=== PATIENT | female | born 1950 | race Caucasian/White ===

== ENCOUNTER → 2018-06-21 07:40 | Outpatient (CLI) | payer MEDICARE, SELFPAY ==
[2018-06-21 07:58] LABS: Basophils # 0.1 K/mm3 (0-0.2); Basophils % 0.9 % (0.1-2.0); Eosinophils # 0.4 K/mm3 (0.0-0.4); Eosinophils % 4.5 % (0.1-12.0); Hematocrit 44.2 % (37.0-47.0); Lymphocytes % 36.7 % (10-50); Mean Corpuscular HGB Conc 31.8 g/dL (31.8-35.4); Mean Corpuscular Hemoglobin 30.4 pg (27.0-31.2); Mean Corpuscular Volume 95.8 fl (81-99); Mean Platelet Volume 7.7 fl (7.4-10.4); Monocytes # 0.5 K/mm3 (0.1-1.0); Neutrophils # 4.3 K/mm3 (1.8-7.8); Neutrophils % 51.8 % (37.0-80.0); Platelet Count 289 K/mm3 (142-424); Red Blood Count 4.62 M/mm3 (4.20-5.40); White Blood Count 8.3 K/mm3 (4.8-10.8)
[2018-06-21 10:07] LABS: Alanine Aminotransferase 27 U/L (12-78); Albumin Level 3.7 gm/dL (3.4-5.0); Albumin/Globulin Ratio 1.2 (1.1-1.8); Alkaline Phosphatase 87 U/L (46-116); Anion Gap 12.7 mEq/L (5-15); Aspartate Amino Transferase 11 U/L (15-37); Bilirubin,Total 0.4 mg/dL (0.2-1.0); Blood Urea Nitrogen 12 mg/dL (7-18); Calcium 9.3 mg/dL (8.5-10.1); Carbon Dioxide 31 mmol/L (21.0-32.0); Chloride 102 mmol/L (98-107); Chol/HDL Ratio 4.3 (1-3.5); Cholesterol 200 mg/dL (140-200); Creatinine,Serum 0.83 mg/dL (0.55-1.02); Estimated Glomerular Filt Rate 69 ml/min (>60); GFR (African American) 83 ML/MIN (>60); Glucose 93 mg/dL (74-106); HDL Cholesterol 47 mg/dL (29-89); LDL Cholesterol 124 mg/dL (0-130); Potassium 4.7 mmoL/L (3.5-5.1); Sodium 141 mmol/L (136-145); T4 (Thyroxine) 13.2 ug/dl (4.7-13.3); Thyroid Stimulating Hormone 2.46 uIU/ml (0.358-3.740); Total Protein,Serum 6.7 gm/dL (6.4-8.2); Triglycerides 147 mg/dL (30-200); VLDL Cholesterol 29 mg/dL (0-40)
== END ==
PROVIDERS: Visit Provider Internal Medicine Cardiovascular Disease
DX: I48.0 Paroxysmal atrial fibrillation (principal); I42.9 Cardiomyopathy, unspecified; Z72.0 Tobacco use; E78.5 Hyperlipidemia, unspecified
CPT/HCPCS: 36415; 80053; 80061; 84436; 84443; 85025

== ENCOUNTER → 2019-01-30 13:49 | Outpatient (CLI) | payer MEDICARE, SELFPAY ==
--- NOTE | 2019-01-30 13:56 | XR_ITS ---
PROCEDURE: XR CHEST 2V CLINICAL HISTORY: PERSISTENT COUGH,R/O PNEUMONIA,HYPOXEMIA Cough, congestion, previous smoker COMPARISON: No exams were available for comparison FINDINGS: The cardiomediastinal silhouette and pulmonary vascularity are within normal limits. Hyperinflation with attenuation of the peripheral pulmonary vessels consistent with COPD There is mild wedging involving what appears to represent T8 and T6 age indeterminate. IMPRESSION: Mild wedging T6 and T8 age indeterminate. COPD Dictated by: Maninder Rudolph MD 01/30/2019 14:44 Signed by: <Electronically signed by Maninder Rudolph MD in [place]> 01/30/2019 14:44
== END ==
PROVIDERS: PCP Family Medicine; Visit Provider Family Medicine
DX: R05 Cough (principal); R09.02 Hypoxemia
CPT/HCPCS: 71046

== ENCOUNTER → 2019-07-02 08:26 | Outpatient (CLI) | payer MEDICARE, SELFPAY ==
[2019-07-02 09:34] LABS: Basophils # 0.1 K/mm3 (0-0.2); Basophils % 0.8 % (0.1-2.0); Eosinophils # 0.4 K/mm3 (0.0-0.4); Eosinophils % 4.1 % (0.1-12.0); Hematocrit 44.7 % (37.0-47.0); Hemoglobin 14.3 g/dL (12.2-16.2); Lymphocytes % 22.3 % (10-50); Mean Corpuscular Volume 96.8 fl (81-99); Monocytes # 0.4 K/mm3 (0.1-1.0); Monocytes % 4.8 % (1.7-9.3); Neutrophils # 6.1 K/mm3 (1.8-7.8); Platelet Count 305 K/mm3 (142-424); Red Blood Count 4.62 M/mm3 (4.20-5.40)
[2019-07-02 10:36] LABS: Alanine Aminotransferase 23 U/L (12-78); Albumin Level 3.9 gm/dL (3.4-5.0); Albumin/Globulin Ratio 1.4 (1.1-1.8); Alkaline Phosphatase 86 U/L (46-116); Anion Gap 12.1 mEq/L (5-15); Aspartate Amino Transferase 17 U/L (15-37); Bilirubin,Total 0.4 mg/dL (0.2-1.0); Blood Urea Nitrogen 10 mg/dL (7-18); Calcium 9.1 mg/dL (8.5-10.1); Carbon Dioxide 31 mmol/L (21.0-32.0); Chloride 103 mmol/L (98-107); Chol/HDL Ratio 3.9 (1-3.5); Cholesterol 205 mg/dL (140-200); Creatinine,Serum 0.81 mg/dL (0.55-1.02); Estimated Glomerular Filt Rate 70 ml/min (>60); Free T4 (Free Thyroxine) 1.54 ng/dl (0.76-1.46); GFR (African American) 85 ML/MIN (>60); Globulin 2.8 gm/dl (1.3-3.2); Glucose 94 mg/dL (74-106); HDL Cholesterol 53 mg/dL (29-89); LDL Cholesterol 127 mg/dL (0-130); Potassium 4.1 mmoL/L (3.5-5.1); Sodium 142 mmol/L (136-145); Thyroid Stimulating Hormone 2.07 uIU/ml (0.358-3.740); Total Protein,Serum 6.7 gm/dL (6.4-8.2); Triglycerides 126 mg/dL (30-200); VLDL Cholesterol 25 mg/dL (0-40)
[2019-07-03 14:02] LABS: Triiodothyronine (T3) Total 123 ng/dL (71-180)
== END ==
PROVIDERS: Visit Provider Internal Medicine Cardiovascular Disease
DX: I48.0 Paroxysmal atrial fibrillation (principal); I42.9 Cardiomyopathy, unspecified; Z79.899 Other long term (current) drug therapy
CPT/HCPCS: 36415; 80053; 80061; 84439; 84443; 84480; 85025

== ENCOUNTER → 2019-10-30 07:24 | Outpatient (CLI) | payer MEDICARE, SELFPAY ==
[2019-10-30 10:25] LABS: Cholesterol 162 mg/dl (140-200); Triglycerides 118 mg/dl (30-150); VLDL Cholesterol 24 mg/dL (0-40)
[2019-10-30 10:26] LABS: Chol/HDL Ratio 2.7 (1-3.5); HDL Cholesterol 59 mg/dl (40-60)
[2019-10-30 10:36] LABS: Direct LDL Cholesterol 105.87 mg/dL (100-129)
== END ==
PROVIDERS: Visit Provider Internal Medicine Cardiovascular Disease
DX: E78.5 Hyperlipidemia, unspecified (principal)
CPT/HCPCS: 36415; 80061

== ENCOUNTER → 2023-03-08 15:06 | Outpatient (CLI) | payer MEDICARE, SELFPAY ==
--- NOTE | 2023-03-08 15:11 | XR_ITS ---
FINAL REPORT CLINICAL HISTORY: EDEMA FINDINGS: LEFT ANKLE: Three views of the left ankle were obtained. There is no acute fracture or dislocation. The joint spaces and mortise are intact. There is soft tissue swelling greatest over the lateral malleolus. There is a small plantar calcaneal spur. There is postoperative change identified in the first metatarsal. IMPRESSION: No acute bony abnormality. Reviewed, Interpreted and Dictated by Nicholas Reed III, MD Transcribed by Freddy Elder Authenticated and [facility]
--- NOTE | 2023-03-08 15:11 | XR_ITS ---
FINAL REPORT CLINICAL HISTORY: EDEMA FINDINGS: 3 views of the left foot were obtained. There are postoperative changes in the first metatarsal and the first proximal phalanx. There is no acute fracture or dislocation. There are mild degenerative changes. There is a small plantar calcaneal spur. The soft tissues are unremarkable. IMPRESSION: Postoperative and degenerative changes. Reviewed, Interpreted and Dictated by Nicholas Reed III, MD Transcribed by Freddy Elder Authenticated and [facility]
== END ==
PROVIDERS: PCP Family Medicine; Visit Provider Family Medicine
DX: R60.0 Localized edema (principal)
CPT/HCPCS: 73610; 73630

== ENCOUNTER → 2023-03-10 15:19 | Outpatient (CLI) | payer MEDICARE, SELFPAY ==
--- NOTE | 2023-03-10 | CA_ITS ---
FINAL REPORT TECHNIQUE: Ultrasound images of the deep venous system were obtained from the left groin to the calf veins. CLINICAL HISTORY: Patient states one week ago she woke up with her left foot and ankle swollen. Denies trauma. The swelling began to move up her left calf. She currently takes Xarelto daily for AFIB. FINDINGS: The deep venous system is normally compressible. Normal flow is identified. IMPRESSION: No evidence of left lower extremity DVT. Reviewed, Interpreted and Dictated by Nicholas Reed III, MD Transcribed by Symone Pardo Authenticated and [facility]
== END ==
PROVIDERS: PCP Family Medicine; Visit Provider Family Medicine
DX: M79.605 Pain in left leg (principal)
CPT/HCPCS: 93971

== ENCOUNTER 2023-06-11 22:01 | Inpatient (IN) | payer MEDICARE, SELFPAY ==
--- NOTE | 2023-06-11 22:06 | ECG_ITS ---
APPROVED REPORT Exam: Resting ECG HR:125 bpm ECG Measurements Heart Rate 125 AXES QRSd 84 QRS 85 QT 292 T 65 QTc 366 Conclusion ATRIAL FIBRILLATION WITH RAPID VENTRICULAR RESPONSE WITH ABERRANT CONDUCTION OR VENTRICULAR PREMATURE COMPLEXES ABNORMAL RHYTHM ECG UNCONFIRMED REPORT Electronically signed by : Milind Tobias MD 06/12/2023 15:11:08
[2023-06-11 22:11] VITALS: BP 106/55; PULSE 124; RESP 30; TEMP 36.9; O2SAT 91; BMI 23.7
[2023-06-11 22:30] VITALS: BP 105/75; PULSE 105; RESP 25; O2SAT 94
--- NOTE | 2023-06-11 22:37 | XR_ITS ---
PROCEDURE INFORMATION: Exam: XR Chest Exam date and time: 06/11/2023 10:43 PM Age: 72 years old Clinical indication: Shortness of breath and other: Arrhythmia; Additional info: Arrhythmia, upper respiratory TECHNIQUE: Imaging protocol: Radiologic exam of the chest. Views: 1 view. COMPARISON: CR XR CHEST 2V 01/30/2019 1:57 PM FINDINGS: Lungs: Right lower lung consolidation. Mild ground-glass density at the left lung base. Pleural spaces: Small right pleural effusion. Heart/Mediastinum: Normal. No cardiomegaly. Bones/joints: Osteopenia. IMPRESSION: 1. Small right pleural effusion. 2. Right lower lung consolidation. Is probably atelectasis but cannot exclude pneumonia or neoplastic disease. 3. Mild ground-glass density at the left lung base could be due to atelectasis or pneumonia.
--- NOTE | 2023-06-11 22:41 | PC.NURSE ---
flu and covid swab obtain and sent to lab
[2023-06-11 22:45] LABS: Coronavirus 19, PCR Not Detected (NotDetected); Influenza A, PCR Not Detected (NotDetected); Influenza B, PCR Not Detected (NotDetected)
[2023-06-11 22:48] LABS: Basophils % 0.3 % (0.1-2.0); Eosinophils # 0.1 K/mm3 (0.0-0.4); Eosinophils % 0.9 % (0.1-12.0); Hematocrit 37.1 % (37.0-47.0); Hemoglobin 12.2 g/dL (12.2-16.2); Lymphocytes % 7.2 % (10-50); Mean Corpuscular Volume 96.9 fl (81-99); Mean Platelet Volume 8.4 fl (7.4-10.4); Monocytes # 0.4 K/mm3 (0.1-1.0); Monocytes % 3.1 % (1.7-9.3); Neutrophils # 12.1 K/mm3 (1.8-7.8); Neutrophils % 88.5 % (37.0-80.0); Platelet Count 400 K/mm3 (142-424); Red Blood Count 3.83 M/mm3 (4.20-5.40); White Blood Count 13.6 K/mm3 (4.8-10.8)
[2023-06-11 22:49] LABS: MANUAL DIFFERENTIAL MANUAL DIFFERENTIAL (MANUAL DIFF)
[2023-06-11 22:50] LABS: Chloride 95 mmol/L (98-107); Sodium 129 mmol/L (136-145)
[2023-06-11 22:51] LABS: Potassium 3.9 mmoL/L (3.5-5.1)
[2023-06-11 22:53] LABS: Alanine Aminotransferase 28 U/L (12-78); Albumin Level 3.2 g/dl (3.5-5.0); Albumin/Globulin Ratio 1.1 (1.1-1.8); Alkaline Phosphatase 91 U/L (38-126); Anion Gap 6.9 mEq/L (5-15); Aspartate Amino Transferase 37 U/L (14-36); Bilirubin,Total 0.9 mg/dl (0.2-1.3); Blood Urea Nitrogen 12 mg/dl (7-17); Carbon Dioxide 31 mmol/L (22.0-30.0); Creatinine Clearance Estimated 54 mL/min (50-200); Estimated Glomerular Filt Rate 82 ml/min (>60); GFR (African American) 100 ML/MIN (>60); Globulin 2.9 g/dL (1.3-3.2); Total Protein,Serum 6.1 g/dl (6.3-8.2)
[2023-06-11 22:54] LABS: Calcium 8.7 mg/dl (8.4-10.2); Glucose 84 mg/dl (74-100); Lactic Acid 1.2 mmol/L (0.7-2.1)
[2023-06-11 22:58] LABS: Anisocytosis 1+; Lymphocytes % 6 % (10-50); Macrocytosis 1+; Monocytes % 4 % (2-9); Neutrophils % 90 % (42-76); Ovalocytes 1+; Platelet Estimate Normal; Total Cells Counted 100
[2023-06-11 23:00] VITALS: BP 68/55; PULSE 111; RESP 29; O2SAT 95
[2023-06-11 23:03] LABS: NT Pro Brain Natriuretic Pep. 2420 pg/mL (0-125)
[2023-06-11 23:08] LABS: Troponin I < 0.01 ng/ml (0.00-0.034)
[2023-06-11] MEDS: METOPROLOL TARTRATE 5MG/5ML VIAL 5 MG IV (23:22)
[2023-06-11] MEDS: LACTATED RINGERS 1000ML 1,000 ML 999 ML IV (23:23)
[2023-06-11 23:30] VITALS: BP 102/77; PULSE 93; RESP 28; O2SAT 92
--- NOTE | 2023-06-11 23:38 | PC.NURSE ---
Pt taken off O2 by to see how she handles. Pt went back to 86% so placed back on 2L by Yvon Garza RN
--- NOTE | 2023-06-11 23:39 | PC.NURSE ---
Per MD, does not think pt needs sepsis workup
[2023-06-12] VITALS (23 sets, daily range): BP systolic 85–147; BP diastolic 34–111; PULSE 100–148; RESP 16–35; TEMP 36.7–37; O2SAT 92–96; BMI 24.5
--- NOTE | 2023-06-12 00:07 | PC.NURSE ---
call placed to cheri for bed assignment
--- NOTE | 2023-06-12 00:10 | HMH.EDGENADL ---
Discharge Plan Disposition Chief Complaint: PAIN Discharge ED Provider: Jose Alejandro Farmer Adult HPI General Chief complaint: PAIN Stated complaint: PAIN Time Seen by Provider: 06/11/23 22:59 Mode of Arrival: EMS Source of Information: Patient Limitations: Physical Limitations Description of Symptoms (Recalled from ER Triage Doc. by RN): Per EMS, Pt has had pain for a few months now, and was [facility] [place] where they dx her with a slipped disc. EMS reports pt has also had a recent URI. Pt c/o cough, rib pain, back pain. hx afib. Pt afib rvr upon arrival. 91%RA RR30 History of Present Illness HPI narrative: Patient presents with diffuse thoracic pain below her bilateral breast. This pain has been ongoing for several months now however worsened over the past 24 hours. She was seen on outpatient basis and diagnosed, to my understanding, with COPD exacerbation and treated with doxycycline. She has history of atrial fibrillation on Eliquis, rheumatoid arthritis on methotrexate, hypertension, CAD. She arrives to the emergency department with 2 L nasal cannula supplemental oxygen requirement that was weaned. She describes associated dyspnea, nonproductive cough that worsens her chest pain, in the absence of fevers. She denies any hemoptysis. Complains of chronic swelling of left top of foot with negative duplex ultrasound. She has been compliant with her medications. No known sick contacts. No syncope or presyncope. She has had associated decreased p.o. intake. Home pain medications have been of limited efficacy. Related Data Allergies Allergy/AdvReac Type Severity Reaction Status Date / Time No Known Allergies Allergy Verified 06/11/23 22:28 [facility] Disclaimer: The information contained in this section may have been updated after the patient was seen, as this information can be updated by other users. Social History Smoking Status: Never smoker alcohol intake: former current occupational status: other Travel in the last 8 weeks: None ROS Obtained: Yes Systems reviewed as appropriate & no additional complaints except as documented As per HPI Physical Exam General General appearance: alert and in no apparent distress Head Head exam: atraumatic and normocephalic Eye Eye exam: Present normal appearance Neck Neck exam: Present normal inspection Chest Chest inspection: Present normal inspection and symmetric chest wall rise Respiratory Respiratory exam: Present normal lung sounds bilaterally and other (Decreased breath sounds in right lower lobe, poor air movement overall); Absent respiratory distress Cardiovascular Cardiovascular exam: Present tachycardia and irregular rhythm Abdominal Exam Abdominal exam: Present soft Neurological Exam Neurological exam: Present alert and oriented X3 Psychiatric Psychiatric exam: Present normal affect and normal mood Skin Skin exam: Present warm and dry Medical Decision Making Medical Records Medical records reviewed: Yes I reviewed the patient's medical records. Erasto Inquiry Pt receiving controlled substance: No Vital Signs: 06/11/23 22:11 06/11/23 22:30 06/11/23 23:00 Temperature 98.4 F Temperature Source Oral Pulse Rate 105 H 111 H Pulse Rate [Left Radial] 124 H Respiratory Rate 30 H 25 H 29 H Blood Pressure 105/75 L 68/55 L Blood Pressure [Right Arm] 106/55 L Blood Pressure Mean [Right Arm] 72 Blood Pressure Source [Right Arm] Automatic Cuff Blood Pressure Position [Right Arm] Supine 02 Sat by Pulse Oximetry 91 L 94 L 95 Oxygen Delivery Method Room Air Room Air Nasal Cannula Oxygen Flow Rate (LPM) 2 2 06/11/23 23:30 Temperature Temperature Source Pulse Rate 93 H Pulse Rate [Left Radial] Respiratory Rate 28 H Blood Pressure 102/77 L Blood Pressure [Right Arm] Blood Pressure Mean [Right Arm] Blood Pressure Source [Right Arm] Blood Pressure Position [Right Arm] 02 Sat by Pulse Oximetry 92 L Oxygen Delivery Method Nasal Cannula Oxygen Flow Rate (LPM) 2 Lab Data Lab Results 06/11/23 22:03: WBC 13.6 H, RBC 3.83 L, Hgb 12.2, Hct 37.1, MCV 96.9, MCH 32.0 H, MCHC 33.0, RDW 18.0 H, Plt Count 400, MPV 8.4, Neut % (Auto) 88.5 H, Lymph % (Auto) 7.2 L, [place] % (Auto) 3.1, Eos % (Auto) 0.9, Baso % (Auto) 0.3, Neut # (Auto) 12.1 H, Lymph # (Auto) 1.0, [place] # (Auto) 0.4, Eos # (Auto) 0.1, Baso # (Auto) 0.0, Total Counted 100, Neutrophils % (Manual) 90 H, Lymphocytes % (Manual) 6 L, Monocytes % (Manual) 4, Platelet Estimate Normal, Anisocytosis 1+, Macrocytosis 1+, Ovalocytes 1+, Sodium 129 L, Potassium 3.9, Chloride 95 L, Carbon Dioxide 31 H, Anion Gap 6.9, BUN 12, Creatinine 0.70, Estimated Creat Clear 54, Estimated GFR 82, Est GFR ( Amer) 100, Glucose 84, Lactate 1.2, Calcium 8.7, Total Bilirubin 0.9, AST 37 H, ALT 28, Alkaline Phosphatase 91, Troponin I < 0.01, NT-Pro-B Natriuret Pep 2420 H, Total Protein 6.1 L, Albumin 3.2 L, Globulin 2.9, Albumin/Globulin Ratio 1.1 06/11/23 22:40: SARS-CoV-2 (PCR) Not detected, Influenza A Untype (PCR) Not detected, Influenza Type B (PCR) Not detected 06/11/23 22:03 06/11/23 22:03 Orders (Tests/Meds): ED MEDICATIONS Generic Name Dose Route Start Last Admin Trade Name Freq PRN Reason Stop Dose Admin Ceftriaxone Sodium 1 gm/ 50 mls @ 100 mls/hr 06/11/23 23:45 Sodium Chloride IV 06/21/23 23:44 Q12H LOLIS Azithromycin 500 mg/ Sodium 250 mls @ 250 mls/hr 06/11/23 23:45 Chloride IV 06/21/23 23:44 Q24H LOLIS Discontinued Medications Generic Name Dose Route Start Last Admin Trade Name Freq PRN Reason Stop Dose Admin Furosemide 20 mg 06/11/23 23:51 Furosemide 40mg/4ml Vial IV 06/11/23 23:52 ONCE ONE Lactated Ringer's 1,000 mls @ 999 mls/hr 06/11/23 23:11 06/11/23 23:23 Lactated Ringer's 1000 Ml Bag IV 06/12/23 00:11 999 mls/hr .Q1H1M ONE Administration Methylprednisolone Sodium Succinate 40 mg 06/11/23 23:51 Methylprednisolone Sod Succ 40mg Vial IV 06/11/23 23:52 ONCE ONE Metoprolol Tartrate 5 mg 06/11/23 23:11 06/11/23 23:22 Metoprolol Tartrate 5mg/5ml Vial IV 06/11/23 23:12 5 mg ONCE ONE Administration ORDERS Category Date Time Status XR chest portable Stat Exams 06/11/23 22:37 Completed BNP [Brain Natriuretic Peptide] Stat Lab 06/11/23 22:03 Completed Complete Blood Count Auto Diff Stat Lab 06/11/23 22:03 Completed Comprehensive Metabolic Panel Stat Lab 06/11/23 22:03 Completed Lactic Acid Stat Lab 06/11/23 22:03 Completed Rapid PCR Covid and Flu A/B Stat Lab 06/11/23 22:40 Completed Troponin I Q3H Lab 06/12/23 01:45 Ordered Troponin I Q3H Lab 06/12/23 04:45 Ordered Troponin I Stat Lab 06/11/23 22:03 Completed HEART Score History (anamnesis): Slightly suspicious ECG: Non-specific disturbance Age: >65 years Risk factors: Atherosclerosis history Troponin: </= normal limit HEART Score: 5 Medical Decision Narrative: Patient with history and exam per above presenting for evaluation of dyspnea, fatigue, cough, chest pain Diagnoses considered include COPD exacerbation, CHF exacerbation, pneumonia, bronchitis, costochondritis, among others. Patient arrives in atrial fibrillation with rapid ventricular response per my independent visualization and interpretation of EKG. This occurs in the setting of known rate controlled atrial fibrillation. She is hemodynamically stable and mentating appropriately at this time. Troponins, CBC, CMP, BNP, chest x-ray, COVID flu testing, patient was treated with 1 L LR, metoprolol 5 mg push, azithromycin 500 mg IV, ceftriaxone 1 g IV, Lasix 20 mg IV, Solu-Medrol 40 mg IV. Labs were independently interpreted by me, significant for BNP 2400, initial troponin undetectable, leukocytosis, creatinine within normal limits, mild hyponatremia with sodium 129. Imaging was independently visualized and interpreted by me, significant for right lower lobe consolidation. On my [id number] ultrasound imaging I am able to visualize static air bronchograms and moderate right-sided pleural effusion. No indication for emergent thoracentesis at this time. Symptoms at this time are thought to be most consistent with pneumonia in the setting of COPD refractory to outpatient antibiotics. This is complicated by possible CHF with some clinical evidence of volume overload. Patient given outpatient management failure will require admission for further workup and treatment. Patient was admitted, admitting orders placed by incoming physician Dr. Hernandez Critical Care Critical Care Time Critical Care Time: No
[2023-06-12] MEDS: METHYLPREDNISOLONE SOD SUCC 40MG VIAL 40 MG IV (01:22)
[2023-06-12] MEDS: FUROSEMIDE 40MG/4ML VIAL 20 MG IV (01:22)
[2023-06-12] MEDS: AZITHROMYCIN 500 MG in 0.9 % SODIUM CHLORIDE 250 ML 250 MG IV ×2 (01:23→21:48)
[2023-06-12] MEDS: CEFTRIAXONE 1 GM 1 GM in 0.9 % SODIUM CHLORIDE 50 ML IV ×3 (01:23→21:47)
[2023-06-12 02:29] LABS: Troponin I < 0.01 ng/ml (0.00-0.034)
[2023-06-12] MEDS: 0.9 % SODIUM CHLORIDE 1000ML 1,000 ML 75 ML IV ×2 (04:59→18:07)
[2023-06-12] MEDS: dilTIAZem 25MG/5ML VIAL 5 MG IV (04:59)
[2023-06-12] MEDS: dilTIAZem HCL 100 MG in 0.9 % SODIUM CHLORIDE 100 ML IV (05:02)
[2023-06-12 05:43] LABS: Troponin I < 0.01 ng/ml (0.00-0.034)
--- NOTE | 2023-06-12 05:56 | PC.NURSE ---
pt moved to higher level of care due to showing A Fib on telemetry with HR in 130s. pt did state she felt like her heart was racing and it has felt this way since symptoms started (reason for coming to hospital) and has also has had this happen in the past. Cardizem 5mg gtt started on patient along with NS @ 75 mL/hr. BP 108/47 as drip was started- will monitor frequently. pt on 2L/NC but does not feel short of breath at this time; normally room air at home.
[2023-06-12] MEDS: ACETAMINOPHEN 325MG TAB 650 MG PO (09:18)
--- NOTE | 2023-06-12 09:54 | P.HP_ITS ---
History of Present Illness *Admission Date: 06/12/23 *Reason for visit:: Trouble breathing *History of present illness: Ms. Pham is a 72 year old female patient of [facility], who see Dr. Shore for her primary care. She presented to the ER last night with increasing difficulty breathing. She states she saw Dr. Shore in the off ice this past week and was diagnosed with bronchitis and treated with Doxycycline. She states she has been taking the medication as it was prescribed but has not gotten any better. She states she has a productive cough and shortness of breath now. [facility] Disclaimer: The information contained in this section may have been updated after the patient was seen, as this information can be updated by other users. Medical History (Updated 06/12/23 @ 10:07 by William Rodriguez MD) Allergic rhinitis Cardiomyopathy COPD (chronic obstructive pulmonary disease) Embolic stroke HTN (hypertension) Hyperlipidemia Hypothyroidism Inflammatory arthritis Osteoarthritis Paroxysmal atrial fibrillation Surgical History (Updated 06/12/23 @ 10:05 by William Rodriguez MD) History of bunionectomy of both great toes History of colonoscopy Family History (Updated 06/12/23 @ 10:05 by William Rodriguez MD) Diabetes Mother Social History Smoking Status: Former smoker alcohol intake: former current occupational status: other Travel in the last 8 weeks: None Review of Systems Constitutional Constitutional: Denies chills and Denies fever(s) ENT Ears, Nose, Mouth, and Throat: Denies dizziness *Cardiovascular Cardiovascular: Denies chest pain *Respiratory Respiratory: Reports as per HPI *Gastrointestinal Gastrointestinal: Denies abdominal pain *Genitourinary Genitourinary: Denies difficulty voiding *Musculoskeletal Musculoskeletal: Reports arthralgias *Neurologic Neurologic: Denies dizziness Meds Home Medications and Allergies Home Medications Medication Instructions Recorded Confirmed Type budesonide-formoterol HFA 160 1 puff inhalation NEEDED PRN 06/12/23 06/12/23 History mcg-4.5 mcg/actuation aerosol Shortness Of Breath Or Wheezing inhaler (Symbicort) diltiazem HCl 240 mg 340 mg PO DAILY 06/12/23 06/12/23 History capsule,extended release 24 hr doxycycline hyclate 100 mg capsule 100 mg PO DAILY 06/12/23 06/12/23 History ezetimibe 10 mg tablet 10 mg PO DAILY 06/12/23 06/12/23 History folic acid 1 mg tablet 1 mg PO DAILY 06/12/23 06/12/23 History gabapentin 300 mg capsule 300 mg PO DAILY 06/12/23 06/12/23 History levothyroxine 50 mcg tablet 50 mcg PO DAILY 06/12/23 06/12/23 History methotrexate sodium 2.5 mg tablet 2.5 mg PO DAILY 06/12/23 06/12/23 History metoprolol succinate 200 mg 200 mg PO DAILY 06/12/23 06/12/23 History tablet,extended release 24 hr prednisone 20 mg tablet 20 mg PO DAILY 06/12/23 06/12/23 History prednisone 5 mg tablet 5 mg PO AC 06/12/23 06/12/23 History ramipril 5 mg capsule 5 mg PO DAILY 06/12/23 06/12/23 History rivaroxaban 20 mg tablet (Xarelto) 20 mg PO DAILY 06/12/23 06/12/23 History tramadol 37.5 mg-acetaminophen 325 37.5 tab PO NEEDED PRN Insomnia 06/12/23 06/12/23 History mg tablet New Prescriptions to Start Prescriptions: Allergies Allergy/AdvReac Type Severity Reaction Status Date / Time No Known Allergies Allergy Verified 06/11/23 22:28 Exam Data for Last 24 hours Vital signs and Labs for Last 24 Hours: Temp Pulse Resp BP Pulse Ox O2 Del Method O2 Flow Rate 98.0 F 142 H 28 H 85/44 L 93 L Nasal Cannula 2 06/12/23 07:35 06/12/23 08:45 06/12/23 08:45 06/12/23 08:45 06/12/23 08:45 06/12/23 09:00 06/12/23 09:00 Laboratory Results - last 24 hr 06/11/23 22:03: WBC 13.6 H, RBC 3.83 L, Hgb 12.2, Hct 37.1, MCV 96.9, MCH 32.0 H , MCHC 33.0, RDW 18.0 H, Plt Count 400, MPV 8.4, Neut % (Auto) 88.5 H, Lymph % (Auto) 7.2 L, [place] % (Auto) 3.1, Eos % (Auto) 0.9, Baso % (Auto) 0.3, Neut # (Auto) 12.1 H, Lymph # (Auto) 1.0, [place] # (Auto) 0.4, Eos # (Auto) 0.1, Baso # (Auto) 0.0, Total Counted 100, Neutrophils % (Manual) 90 H, Lymphocytes % (Manual) 6 L, Monocytes % (Manual) 4, Platelet Estimate Normal, Anisocytosis 1+, Macrocytosis 1+, Ovalocytes 1+, Sodium 129 L, Potassium 3.9, Chloride 95 L, Carbon Dioxide 31 H, Anion Gap 6.9, BUN 12, Creatinine 0.70, Estimated Creat Clear 54, Estimated GFR 82, Est GFR ( Amer) 100, Glucose 84, Lactate 1.2, Calcium 8.7, Total Bilirubin 0.9, AST 37 H, ALT 28, Alkaline Phosphatase 91, Troponin I < 0.01, NT-Pro-B Natriuret Pep 2420 H, Total Protein 6.1 L, Albumin 3.2 L, Globulin 2.9, Albumin/Globulin Ratio 1.1 06/11/23 22:40: SARS-CoV-2 (PCR) Not detected, Influenza A Untype (PCR) Not detected, Influenza Type B (PCR) Not detected 06/12/23 02:00: Troponin I < 0.01 06/12/23 04:45: Troponin I < 0.01 I & O for Last 24 hours: Intake & Output 06/09/23 06/10/23 06/11/23 06/12/23 23:59 23:59 23:59 23:59 Intake Total 39.000 / 39.000 Output Total 0 / 0 Balance 39.000 / 39.000 Weight 147 lb 152 lb 8 oz Constitutional Constitutional: no acute distress *Routine HEENT Exam Head: Present normocephalic Eye: Present EOMI and PERRL ENT: Present mucous membranes moist *Routine Neck Exam Neck: Present supple; Absent lymphadenopathy *Routine Respiratory Exam Respiratory: Present decreased breath sounds and rhonchi *Routine Cardiovascular Exam Cardiovascular: Present tachycardia and irregularly irregular *Routine Abdominal Exam Abdominal: Present soft and normoactive bowel sounds; Absent tenderness *Routine Rectal Exam Rectal:: deferred *Routine Genitalia Exam Genitalia:: deferred *Routine Extremities Exam Extremities: Absent cyanosis, clubbing or edema *Routine Skin Exam Skin: Present warm; Absent rash *Routine Neurological Exam Neurological: Present alert and oriented X3 Assessment and Plan *Assessment and plan (1) Pneumonia: Status: Acute Qualifiers: Pneumonia type: due to unspecified organism Laterality: bilateral Category: Medical Code(s): J18.9 - Pneumonia, unspecified organism (2) Atrial fibrillation with RVR: Status: Acute Category: Medical Code(s): I48.91 - Unspecified atrial fibrillation (3) HTN (hypertension): Status: Acute Category: Medical Code(s): I10 - Essential (primary) hypertension (4) Hypothyroidism: Status: Acute Category: Medical Code(s): E03.9 - Hypothyroidism, unspecified (5) Cardiomyopathy: Status: Acute Category: Medical Code(s): I42.9 - Cardiomyopathy, unspecified Plan Patient admitted for further evaluation and management of her pneumonia after failing outpatient treatment. Plan to continue Zithromax and Rocephin. Cardizem drip started for her A. fib with RVR, will resume some of her home meds now including Xarelto.
[2023-06-12] MEDS: LEVOTHYROXINE 50MCG (0.05MG) TAB 50 MCG PO (11:40)
[2023-06-12] MEDS: predniSONE 20MG TAB 20 MG PO (11:40)
[2023-06-12] MEDS: EZETIMIBE 10MG TABLET 10 MG PO (11:40)
[2023-06-12] MEDS: FOLIC ACID 1MG TABLET 1 MG PO (11:40)
[2023-06-12] MEDS: GABAPENTIN 300MG CAPSULE 300 MG PO (11:40)
[2023-06-12] MEDS: BUDESONIDE IH ×2 (14:35→18:01)
[2023-06-12] MEDS: FORMOTEROL IH ×2 (14:35→18:01)
[2023-06-12] MEDS: XARELTO 20 MG 1 EACH PO (17:57)
[2023-06-12] MEDS: dilTIAZem HCL 100 MG in 0.9 % SODIUM CHLORIDE 100 ML 15 MG IV (19:19)
[2023-06-12] MEDS: PAT OWN MED ***GABAPENTIN 300MG 300 MG PO (21:48)
[2023-06-13] VITALS (16 sets, daily range): BP systolic 86–152; BP diastolic 47–84; PULSE 64–137; RESP 16–33; TEMP 36.6–36.9; O2SAT 94–97; BMI 24.5
[2023-06-13] MEDS: dilTIAZem HCL 100 MG in 0.9 % SODIUM CHLORIDE 100 ML 15 MG IV ×2 (01:48→08:17)
[2023-06-13] MEDS: PAT OWN MED ***LEVOTHYROXINE 50MCG 50 MCG PO (06:14)
[2023-06-13] MEDS: FORMOTEROL IH ×2 (06:40→17:56)
[2023-06-13] MEDS: BUDESONIDE IH ×2 (06:40→17:56)
[2023-06-13 07:23] LABS: Basophils % 0.1 % (0.1-2.0); Eosinophils % 0.1 % (0.1-12.0); Hematocrit 33.3 % (37.0-47.0); Hemoglobin 10.8 g/dL (12.2-16.2); Lymphocytes # 0.9 K/mm3 (0.7-4.5); Lymphocytes % 6.2 % (10-50); Mean Corpuscular HGB Conc 32.5 g/dL (31.8-35.4); Mean Corpuscular Hemoglobin 31.8 pg (27.0-31.2); Mean Corpuscular Volume 97.8 fl (81-99); Mean Platelet Volume 8.3 fl (7.4-10.4); Monocytes # 0.3 K/mm3 (0.1-1.0); Monocytes % 1.8 % (1.7-9.3); Neutrophils # 13.8 K/mm3 (1.8-7.8); Neutrophils % 91.8 % (37.0-80.0); Platelet Count 402 K/mm3 (142-424); Red Cell Distribution Width 18.1 % (11.5-17.5)
[2023-06-13 07:33] LABS: MANUAL DIFFERENTIAL MANUAL DIFFERENTIAL (MANUAL DIFF)
[2023-06-13 07:36] LABS: Alanine Aminotransferase 27 U/L (12-78); Albumin Level 2.9 g/dl (3.5-5.0); Albumin/Globulin Ratio 1.1 (1.1-1.8); Alkaline Phosphatase 79 U/L (38-126); Anion Gap 4.5 mEq/L (5-15); Aspartate Amino Transferase 31 U/L (14-36); Bilirubin,Total 0.3 mg/dl (0.2-1.3); Blood Urea Nitrogen 9 mg/dl (7-17); Calcium 8.2 mg/dl (8.4-10.2); Carbon Dioxide 32 mmol/L (22.0-30.0); Chloride 103 mmol/L (98-107); Creatinine Clearance Estimated 56 mL/min (50-200); Estimated Glomerular Filt Rate 98 ml/min (>60); GFR (African American) 119 ML/MIN (>60); Globulin 2.6 g/dL (1.3-3.2); Glucose 89 mg/dl (74-100); Potassium 3.5 mmoL/L (3.5-5.1); Sodium 136 mmol/L (136-145); Total Protein,Serum 5.5 g/dl (6.3-8.2)
--- NOTE | 2023-06-13 08:06 | CA_ITS ---
APPROVED REPORT EXAM: Comprehensive 2D, Doppler, and color-flow Echocardiogram Business Continuity Planner: Belen Quintero CRT Ht: 5 ft 6 in Wt: 152lbs BSA: 1.78 BP: 85/44 mmHg Indications: Abnormal ECG, Shortness of Breath, Atrial Fibrillation, CAD, Cardiomyopathy 2D Dimensions LA Volume 31.60 mL LA Volume Index 17.40 mL/m2 (M/F) 16-34 M-Mode Dimensions RVDd 2.41 cm (0.9-2.6) LA Diam 4.71 cm (1.9-4.0) LVDd 4.10 cm (3.5-5.7) LVDs 2.63 cm (3.5-5.7) IVSd 1.50 cm (0.6-1.1) PWd 0.91 cm (0.6-1.1) EF (Teich) 65.90% FS 35.90% EDV (Teich) 74.20 mL TAPSE 1.26 (<1.7) ESV (Teich) 25.30 mL LV Diastology E Decel Time 127 (160-240 msec) E/A Ratio 2.76 MED A' 3.60 cm/s LAT A' 3.60 cm/s Aortic Valve AO Peak GR. 6.30 mmHg Mitral Valve MV A Velocity 30.0 (40-130 cm/s) E/A Ratio 2.76 Pulmonary Valve PV Peak Velocity 127.0 (50-150 cm/s) Tricuspid Valve TR P. Velocity 293.00 cm/s RAP Estimate 10.00 mmHg RVSP 44.30 mmHg Left Ventricle The left ventricle is normal size. The left ventricular systolic function is normal. The left ventricular ejection fraction is within the normal range. There is increased LV wall thickness. There is normal LV segmental wall motion. Diastolic function is indeterminate due to atrial fibrillation. LVEF is 65%. Right Ventricle The right ventricle is mildly dilated. The right ventricular systolic function is mildly hypokinetic. Atria The left atrium is mildly dilated. The right atrium is mildly dilated. There is no Doppler evidence of interatrial shunt. Aortic Valve The aortic valve is mildly thickened. There is no aortic valvular stenosis. Mild aortic regurgitation. Mitral Valve The mitral valve leaflets are mildly thickened. No evidence of mitral valve stenosis. Mild mitral regurgitation. Tricuspid Valve The tricuspid valve leaflets are thin and pliable. Mild tricuspid regurgitation. RVSP is 30 mmHg plus RA pressure. Pulmonic Valve The pulmonary valve is normal in structure. Mild pulmonic regurgitation. Great Vessels The aortic root is normal in size. The ascending aorta is not well-visualized. The IVC is not well-visualized. Pericardium There is no pericardial effusion. Other Information Study Quality: Fair Conclusion Normal LV systolic function. Mild RV dilation with mild reduction in RV function. Mild biatrial dilation. Mild AI, MR, TR, and PI. RVSP is 30 mmHg plus RA pressure. Electronically signed by : Madiha Jeff MD 06/14/2023 05:51:54
[2023-06-13] MEDS: predniSONE 20MG TAB 20 MG PO (08:18)
[2023-06-13] MEDS: CEFTRIAXONE 1 GM 1 GM in 0.9 % SODIUM CHLORIDE 50 ML IV ×2 (08:18→20:12)
[2023-06-13] MEDS: FOLIC ACID 1 MG PO (08:18)
[2023-06-13] MEDS: PAT OWN MED ***EZETIMIBE 10MG 10 MG PO (08:19)
--- NOTE | 2023-06-13 08:52 | EXP.ACUTE.PN ---
Subjective *Date: 06/13/23 *Time: 09:01 Interval history: Patient is very anxious this a.m. Has just been up to the bathroom and had a stool. Tried sitting in the chair at bedside was unable to tolerate due to back pain. Breathing is labored. She states she slept about an hour last night and an hour yesterday. She has not slept in the past 3 to 4 days. She did have several coughing spells during the night. To note white blood cell count today is 15,000 with a hemoglobin of 10.8 and hematocrit of 33.3. CXR 06/11/2023: FINDINGS: Lungs: Right lower lung consolidation. Mild ground-glass density at the left lung base. Pleural spaces: Small right pleural effusion. Heart/Mediastinum: Normal. No cardiomegaly. Bones/joints: Osteopenia. IMPRESSION: 1. Small right pleural effusion. 2. Right lower lung consolidation. Is probably atelectasis but cannot exclude pneumonia or neoplastic disease. 3. Mild ground-glass density at the left lung base could be due to atelectasis or pneumonia. Medical Exam Vital signs and Labs for Last 24 Hours: Vital Signs Temp Pulse Pulse Pulse Resp BP Pulse Ox 06/13/23 07:50 123 H 95 06/13/23 07:59 98.2 F 06/13/23 04:00 120 H 06/13/23 04:00 98.4 F 06/13/23 05:00 06/13/23 06:00 134 H 33 H 103/67 L 94 L 06/13/23 04:00 121 H 19 91/57 L 06/13/23 04:00 06/12/23 20:00 108 H 25 H 91/56 L 96 06/12/23 22:00 104 H 21 100/44 L 96 06/13/23 00:00 106 H 24 88/55 L 96 06/13/23 02:00 103 H 25 H 86/60 L 94 L 06/13/23 00:00 100 H 06/13/23 00:00 97.9 F 06/13/23 03:00 06/13/23 01:00 06/12/23 23:00 06/12/23 21:00 06/12/23 20:00 06/12/23 20:00 98.1 F 06/12/23 18:56 118 H 35 H 95/34 L 94 L 06/12/23 18:14 06/12/23 17:00 06/12/23 18:00 120 H 30 H 105/61 L 95 06/12/23 17:00 119 H 26 H 143/99 H 93 L 06/12/23 16:00 105 H 26 H 87/50 L 96 06/12/23 16:00 100 H 06/12/23 15:41 96 06/12/23 15:00 06/12/23 15:09 98.1 F 06/12/23 12:00 120 H 06/12/23 13:00 06/12/23 13:00 113 H 24 90/54 L 96 06/12/23 12:00 121 H 24 147/111 H 95 06/12/23 11:00 06/12/23 11:10 98.2 F 06/12/23 09:00 O2 Del Method O2 Flow Rate 06/13/23 07:50 Nasal Cannula 4 06/13/23 07:59 06/13/23 04:00 06/13/23 04:00 06/13/23 05:00 Nasal Cannula 4 06/13/23 06:00 Nasal Cannula 4 06/13/23 04:00 Nasal Cannula 2 06/13/23 04:00 Nasal Cannula 2 06/12/23 20:00 Nasal Cannula 2 06/12/23 22:00 Nasal Cannula 2 06/13/23 00:00 Nasal Cannula 2 06/13/23 02:00 Nasal Cannula 2 06/13/23 00:00 06/13/23 00:00 06/13/23 03:00 Nasal Cannula 2 06/13/23 01:00 Nasal Cannula 2 06/12/23 23:00 Nasal Cannula 2 06/12/23 21:00 Nasal Cannula 2 06/12/23 20:00 Nasal Cannula 2 06/12/23 20:00 06/12/23 18:56 Nasal Cannula 2 06/12/23 18:14 Nasal Cannula 2 06/12/23 17:00 Nasal Cannula 2 06/12/23 18:00 Nasal Cannula 2 06/12/23 17:00 Nasal Cannula 2 06/12/23 16:00 Nasal Cannula 2 06/12/23 16:00 06/12/23 15:41 Nasal Cannula 2 06/12/23 15:00 Nasal Cannula 2 06/12/23 15:09 06/12/23 12:00 06/12/23 13:00 Nasal Cannula 2 06/12/23 13:00 Nasal Cannula 2 06/12/23 12:00 Nasal Cannula 2 06/12/23 11:00 Nasal Cannula 2 06/12/23 11:10 06/12/23 09:00 Nasal Cannula 2 Intake and Output 06/12/23 06/13/23 06/13/23 19:59 03:59 11:59 Intake Total 1411 / 1411 2566.25 / 3977.25 337.25 / 4314.50 Output Total 0 / 0 0 / 0 0 / 0 Balance 1411 / 1411 2566.25 / 3977.25 337.25 / 4314.50 Intake: Intake, Oral Amount 1350 / 1350 240 / 1590 Intake, Other Amount 2469 / 2469 Intake, Total IV Amount 61 / 61 97.25 / 158.25 97.25 / 255.50 Output: Output, Urine Amount 0 / 0 0 / 0 0 / 0 Other: Number of Unmeasured Voids 1 1 1 Number of Bowel Movements 1 Weight 152 lb 8.006 oz Patient Weight 06/13/23 11:59 Weight 152 lb 8.006 oz Laboratory Results - last 24 hr 06/13/23 06:41: WBC 15.0 H, RBC 3.40 L, Hgb 10.8 L, Hct 33.3 L, MCV 97.8, MCH 31.8 H, MCHC 32.5, RDW 18.1 H, Plt Count 402, MPV 8.3, Neut % (Auto) 91.8 H, Lymph % (Auto) 6.2 L, [place] % (Auto) 1.8, Eos % (Auto) 0.1, Baso % (Auto) 0.1, Neut # (Auto) 13.8 H, Lymph # (Auto) 0.9, [place] # (Auto) 0.3, Eos # (Auto) 0.0, Baso # (Auto) 0.0, Sodium 136, Potassium 3.5, Chloride 103, Carbon Dioxide 32 H, Anion Gap 4.5 L, BUN 9, Creatinine 0.60, Estimated Creat Clear 56, Estimated GFR 98, Est GFR ( Amer) 119, Glucose 89, Calcium 8.2 L, Total Bilirubin 0.3, AST 31, ALT 27, Alkaline Phosphatase 79, Total Protein 5.5 L, Albumin 2.9 L, Globulin 2.6, Albumin/Globulin Ratio 1.1 I & O for Labs for Last 24 Hours: Intake & Output 06/10/23 06/11/23 06/12/23 06/13/23 11:59 11:59 11:59 11:59 Intake Total 39.000 / 39.000 4314.50 / 4314.50 Output Total 0 / 0 0 / 0 Balance 39.000 / 39.000 4314.50 / 4314.50 Weight 152 lb 8 oz 152 lb 8.006 oz Constitutional: Present mild distress and agitated Respiratory: Present CTA bilaterally (Anteriorly and posteriorly) Cardiac: Present Irregularly Regular (Monitor showing atrial fibrillation with ventricular heart rate 110-130) GI: Present soft and normal bowel sounds; Absent distention, tenderness or guarding Extremities: Absent edema or calf tenderness Neuro: Present alert, awake and oriented x 3 Assessment and Plan *Assessment and plan (1) Pneumonia: Status: Acute Qualifiers: Laterality: bilateral Pneumonia type: due to unspecified organism Category: Medical Code(s): J18.9 - Pneumonia, unspecified organism (2) Atrial fibrillation with RVR: Status: Acute Category: Medical Code(s): I48.91 - Unspecified atrial fibrillation (3) HTN (hypertension): Status: Acute Category: Medical Code(s): I10 - Essential (primary) hypertension (4) Hypothyroidism: Status: Acute Category: Medical Code(s): E03.9 - Hypothyroidism, unspecified (5) Cardiomyopathy: Status: Acute Category: Medical Code(s): I42.9 - Cardiomyopathy, unspecified (6) Back pain: Status: Acute Category: Medical Code(s): M54.9 - Dorsalgia, unspecified Plan At home pain medicine. Cardiology to see today. Continue with antibiotic coverage and steroids for now. Dr. Rodriguez entry - Saw patient, agree with above note.
--- NOTE | 2023-06-13 09:04 | PC.NURSE ---
staff attempted to get pt up to chair, was initially agreeable, but then stated that her back hurt and did not want to get up to the chair. Brandie Bingham aware.
[2023-06-13 09:05] LABS: Lymphocytes % 6 % (10-50); Monocytes % 3 % (2-9); Neutrophils % 86 % (42-76); Total Cells Counted 100
[2023-06-13 09:12] LABS: Macrocytosis 1+; Platelet Estimate Normal; RBC Morphology Normal
[2023-06-13 09:13] LABS: Hypochromasia 1+; Polychromasia 1+; Spherocytes 1+
[2023-06-13] MEDS: POLYETHYLENE GLYCOL 3350 17 GM PACKET PO (09:30)
[2023-06-13] MEDS: TRAMADOL PO (09:31)
[2023-06-13] MEDS: APAP PO (09:31)
[2023-06-13] MEDS: 0.9 % SODIUM CHLORIDE 1000ML 1,000 ML 75 ML IV (09:33)
--- NOTE | 2023-06-13 10:52 | XR_ITS ---
FINAL REPORT CLINICAL HISTORY: soa COMPARISON: 06/11/2023 FINDINGS: A single portable view of the chest was obtained. The heart size and pulmonary vascularity are within normal limits. The mediastinum is within normal limits. There is a moderate sized right pleural effusion present, larger than noted on the prior film of June 11. A small left pleural effusion persists. There is continued persistent opacity in the right lung base, favor atelectasis. The bony thorax is intact. IMPRESSION: Persistent opacity in the right lung base, favor atelectasis. Moderate size right pleural effusion, larger than seen on the prior film, with a small left pleural effusion. Reviewed, Interpreted and Dictated by Nicholas Reed III, MD Transcribed by Janna Hassan Authenticated and [facility]
[2023-06-13] MEDS: dilTIAZem ER 240MG CAPSULE 240 MG PO (11:52)
[2023-06-13] MEDS: METOPROLOL SUCCINATE XL 100MG TABLET 200 MG PO (11:52)
--- NOTE | 2023-06-13 11:58 | PC.NURSE ---
at start of shift pt o2 was @ 4lpm/nc 1110 o2 decreased to 2lpm/nc
--- NOTE | 2023-06-13 13:43 | EXP.CARD.CON ---
History of Present Illness History of Present Illness Consult date: 06/13/23 Consult reason: shortness of breath Chief complaint: soa History of present illness: 72-year-old white female with past medical history of A-fib on Xarelto, chronic back pain and hypertension presented to emergency department 06/11 with complaint of generalized body aches and increased shortness of breath. Recently seen in PCPs office last week and diagnosed with bronchitis and started on doxycycline. Patient reports since then symptoms have continued and now she has a productive cough and shortness of breath. Upon presentation to emergency department patient was in A-fib RVR with a rate of 125. Labs were as follow: WBC 13.6, hemoglobin 12.2, sodium 129, potassium 3.9, creatinine 0.7, troponin negative and proBNP 2420. Chest x-ray was obtained which shows a small right pleural effusion, right lower lobe consolidation probably atelectasis but pneumonia and neoplastic disease cannot be excluded. Patient was admitted for pneumonia and A-fib RVR and home medications were resumed. Patient was started on Zithromax and Rocephin. This morning patient remains in A-fib RVR with a rate of 120 on a diltiazem drip. Morning labs reviewed. Denies chest pain, reports continued shortness of breath. [facility] Disclaimer: The information contained in this section may have been updated after the patient was seen, as this information can be updated by other users. Medical History (Updated 06/14/23 @ 08:16 by Tiffany Bingham APRN) Allergic rhinitis Cardiomyopathy COPD (chronic obstructive pulmonary disease) Embolic stroke HTN (hypertension) Hyperlipidemia Hypothyroidism Inflammatory arthritis Osteoarthritis Paroxysmal atrial fibrillation Surgical History (Updated 06/12/23 @ 10:05 by William Rodriguez MD) History of bunionectomy of both great toes History of colonoscopy Family History (Updated 06/12/23 @ 10:05 by William Rodriguez MD) Mother Diabetes Social History Smoking Status: Former smoker alcohol intake: former current occupational status: other Travel in the last 8 weeks: None Review of Systems ENT Ears, Nose, Mouth, and Throat: Denies dizziness *Cardiovascular Cardiovascular: Denies chest pain and Reports dyspnea *Respiratory Respiratory: Reports cough and Reports dyspnea *Neurologic Neurologic: Denies dizziness Exam Data for Last 24 hours Vital signs and Labs for Last 24 Hours: Temp Pulse Resp BP Pulse Ox O2 Del Method O2 Flow Rate 98.2 F 64 18 107/73 L 97 Nasal Cannula 2 06/13/23 11:35 06/13/23 12:00 06/13/23 12:00 06/13/23 12:00 06/13/23 12:00 06/13/23 12:00 06/13/23 12:00 Laboratory Results - last 24 hr 06/13/23 06:41: WBC 15.0 H, RBC 3.40 L, Hgb 10.8 L, Hct 33.3 L, MCV 97.8, MCH 31.8 H, MCHC 32.5, RDW 18.1 H, Plt Count 402, MPV 8.3, Neut % (Auto) 91.8 H, Lymph % (Auto) 6.2 L, [place] % (Auto) 1.8, Eos % (Auto) 0.1, Baso % (Auto) 0.1, Neut # (Auto) 13.8 H, Lymph # (Auto) 0.9, [place] # (Auto) 0.3, Eos # (Auto) 0.0, Baso # (Auto) 0.0, Total Counted 100, Neutrophils % (Manual) 86 H, Band Neutrophils % 5.0, Lymphocytes % (Manual) 6 L, Monocytes % (Manual) 3, Platelet Estimate Normal, RBC Morphology Normal, Polychromasia 1+, Hypochromasia 1+, Macrocytosis 1+, Spherocytes 1+, Sodium 136, Potassium 3.5, Chloride 103, Carbon Dioxide 32 H, Anion Gap 4.5 L, BUN 9, Creatinine 0.60, Estimated Creat Clear 56, Estimated GFR 98, Est GFR ( Amer) 119, Glucose 89, Calcium 8.2 L, Total Bilirubin 0.3, AST 31, ALT 27, Alkaline Phosphatase 79, Total Protein 5.5 L, Albumin 2.9 L, Globulin 2.6, Albumin/Globulin Ratio 1.1 I & O for Last 24 hours: Intake & Output 06/10/23 06/11/23 06/12/23 06/13/23 23:59 23:59 23:59 23:59 Intake Total 1450.000 / 3919.000 3246.75 / 3246.75 Output Total 0 / 0 0 / 0 Balance 1450.000 / 3919.000 3246.75 / 3246.75 Weight 147 lb 152 lb 8 oz 152 lb 8.006 oz Constitutional Constitutional: no acute distress *Routine Respiratory Exam Respiratory: Present rhonchi and symmetric chest movement *Routine Cardiovascular Exam Cardiovascular: Present RRR, Normal S1 and Normal S2 *Routine Abdominal Exam Abdominal: Present soft and normoactive bowel sounds; Absent tenderness *Routine Extremities Exam Extremities: Present full ROM and normal capillary refill; Absent edema *Routine Skin Exam Skin: Present intact, dry and warm Detailed Neck Exam: Thyroids Thyroid: Absent bruit Meds Home Medications and Allergies Home Medications Medication Instructions Recorded Confirmed Type budesonide-formoterol HFA 160 2 puff inhalation BID SOB 06/12/23 06/12/23 History mcg-4.5 mcg/actuation aerosol inhaler (Symbicort) diltiazem HCl 240 mg 240 mg PO DAILY HYPERTENTION 06/12/23 06/12/23 History capsule,extended release 24 hr doxycycline hyclate 100 mg capsule 100 mg PO DAILY ANTIBIOTIC 06/12/23 06/12/23 History ezetimibe 10 mg tablet 10 mg PO DAILY LIPIDS 06/12/23 06/12/23 History fluticasone propionate 50 1 spray intranasal DAILYP PRN 06/12/23 06/12/23 History mcg/actuation nasal ALLERGIES spray,suspension folic acid 1 mg tablet 1 mg PO DAILY Supplement 06/12/23 06/12/23 History gabapentin 300 mg capsule 300 mg PO HS NEUROPATHY 06/12/23 06/12/23 History guaifenesin 600 mg tablet, 600 mg PO BID Cough 06/12/23 06/12/23 History extended release 12 hr (Mucinex) levothyroxine 50 mcg tablet 50 mcg PO DAILY THYROID 06/12/23 06/12/23 History methotrexate sodium 2.5 mg tablet 15 mg PO SA@0900 Arthritis 06/12/23 06/12/23 History metoprolol succinate 200 mg 200 mg PO DAILY Hypertension 06/12/23 06/12/23 History tablet,extended release 24 hr polyethylene glycol 3350 17 gram 17 g PO DAILY BOWELS 06/12/23 06/12/23 History oral powder packet (Miralax) prednisone 5 mg tablet 5 mg PO DAILY INFLAMMATION 06/12/23 06/12/23 History ramipril 5 mg capsule 5 mg PO DAILY Hypertension 06/12/23 06/12/23 History rivaroxaban 20 mg tablet (Xarelto) 20 mg PO QPMWITHMEAL Blood Thinner 06/12/23 06/12/23 History tramadol 37.5 mg-acetaminophen 325 37.5 tab PO TIDP PRN Pain, Moderate 06/12/23 06/12/23 History mg tablet New Prescriptions to Start Prescriptions: Allergies Allergy/AdvReac Type Severity Reaction Status Date / Time No Known Allergies Allergy Verified 06/11/23 22:28 Assessment and Plan *Assessment and plan (1) Atrial fibrillation with RVR: Status: Acute Category: Medical Code(s): I48.91 - Unspecified atrial fibrillation (2) HTN (hypertension): Status: Acute Category: Medical Code(s): I10 - Essential (primary) hypertension (3) Pneumonia: Status: Acute Qualifiers: Laterality: bilateral Pneumonia type: due to unspecified organism Category: Medical Code(s): J18.9 - Pneumonia, unspecified organism Plan Afib rvr chadsvasc score 3 Dyspnea Small right pleural effusion -Continue Xarelto 20 mg p.o. daily -Continue home dose of metoprolol 200 mg daily and diltiazem 240 daily -Resume dilt drip for rate control less than 120 -Repeat chest x-ray 06/13 shows worsening right lung base effusion -Lasix 40 mg IV x BID -Echo 06/13:Overall LV systolic function, mild RV dilation with mild reduction in RV function, mild biatrial dilation, mild AI, MR, TR and PI, RVSP is 30+ -Will obtain CTA to further evaluate right sided pleural effusion Hypertension -Currently well-controlled continue home meds Pneumonia -Defer to primary service CV summary 06/13/2023: Home metoprolol and diltiazem was restarted today. Attempt to wean from Dilt drip. Official echo read is pending will diurese with Lasix 40 mg IV x 1. Continue with IV antibiotics
[2023-06-13] MEDS: dilTIAZem HCL 100 MG in 0.9 % SODIUM CHLORIDE 100 ML IV (14:09)
[2023-06-13] MEDS: RIVAROXABAN 10MG TABLET 20 MG PO (17:20)
--- NOTE | 2023-06-13 17:34 | PC.NURSE ---
pt has remained awake this shift. pt is a/o x 4, lungs are diminished throughout, bowel sounds are active in all quads. pt has had 2 bm this shift and is satisfied with the amount able to be voided. nad noted. pt has been at bedside periodically throughout the day. all of pt home meds were returned to per his request, following pt status from obs to inpt.
[2023-06-13] MEDS: GABAPENTIN 300MG CAPSULE 300 MG PO (20:13)
[2023-06-13] MEDS: AZITHROMYCIN 500 MG in 0.9 % SODIUM CHLORIDE 250 ML 250 MG IV (20:56)
[2023-06-14] VITALS (14 sets, daily range): BP systolic 101–169; BP diastolic 54–96; PULSE 90–130; RESP 22–29; TEMP 36.7–37.8; O2SAT 90–96; BMI 24.4
[2023-06-14] MEDS: 0.9 % SODIUM CHLORIDE 1000ML 1,000 ML 75 ML IV (00:36)
[2023-06-14] MEDS: BUDESONIDE IH ×2 (06:20→18:32)
[2023-06-14] MEDS: FORMOTEROL IH ×2 (06:20→18:32)
[2023-06-14] MEDS: LEVOTHYROXINE 50MCG (0.05MG) TAB 50 MCG PO (06:22)
[2023-06-14 06:59] LABS: Basophils % 0.1 % (0.1-2.0); Eosinophils # 0.1 K/mm3 (0.0-0.4); Eosinophils % 0.7 % (0.1-12.0); Hemoglobin 11.2 g/dL (12.2-16.2); Lymphocytes # 1.1 K/mm3 (0.7-4.5); Lymphocytes % 7.2 % (10-50); Mean Corpuscular HGB Conc 31.2 g/dL (31.8-35.4); Mean Corpuscular Hemoglobin 31.1 pg (27.0-31.2); Mean Corpuscular Volume 99.6 fl (81-99); Mean Platelet Volume 7.8 fl (7.4-10.4); Monocytes # 0.3 K/mm3 (0.1-1.0); Monocytes % 2.1 % (1.7-9.3); Neutrophils # 13.4 K/mm3 (1.8-7.8); Neutrophils % 89.9 % (37.0-80.0); Platelet Count 447 K/mm3 (142-424); Red Blood Count 3.62 M/mm3 (4.20-5.40); Red Cell Distribution Width 18.1 % (11.5-17.5); White Blood Count 14.9 K/mm3 (4.8-10.8)
[2023-06-14 07:04] LABS: MANUAL DIFFERENTIAL MANUAL DIFFERENTIAL (MANUAL DIFF)
[2023-06-14 07:09] LABS: Anion Gap 7.5 mEq/L (5-15); Blood Urea Nitrogen 11 mg/dl (7-17); Calcium 8.3 mg/dl (8.4-10.2); Carbon Dioxide 30 mmol/L (22.0-30.0); Chloride 102 mmol/L (98-107); Creatinine Clearance Estimated 55 mL/min (50-200); Estimated Glomerular Filt Rate 98 ml/min (>60); GFR (African American) 119 ML/MIN (>60); Glucose 81 mg/dl (74-100); Potassium 3.5 mmoL/L (3.5-5.1); Sodium 136 mmol/L (136-145)
--- NOTE | 2023-06-14 08:07 | EXP.ACUTE.PN ---
Subjective *Date: 06/14/23 *Time: 08:43 Interval history: Patient states she did sleep last night and feels better this a.m. Her bowels moved which additionally has made her feel better. She is eating and drinking satisfactory. She has been up in the room. She is concerned about swelling in her left calf and lower extremity. She states her back and hips do not hurt today. CBC shows a white count of 14,900 with a hemoglobin of 11.2 hematocrit of 36. Blood chemistry shows normal electrolytes with a BUN of 11 and creatinine of 0.6. Medical Exam Vital signs and Labs for Last 24 Hours: Vital Signs Temp Pulse Pulse Resp BP Pulse Ox O2 Del Method 06/14/23 08:00 98.2 F 06/14/23 04:00 125 H 06/14/23 06:00 124 H 28 H 119/96 H 91 L Nasal Cannula 06/14/23 05:00 Nasal Cannula 06/14/23 04:00 98.1 F 122 H 26 H 132/80 Nasal Cannula 06/14/23 04:00 Nasal Cannula 06/14/23 00:00 117 H 06/13/23 20:00 113 H 06/14/23 00:00 100.1 F H 118 H 22 117/75 93 L Nasal Cannula 06/14/23 02:00 128 H 26 H 108/72 L 93 L Nasal Cannula 06/14/23 03:00 Nasal Cannula 06/14/23 01:00 Nasal Cannula 06/13/23 23:00 Nasal Cannula 06/13/23 22:00 111 H 27 H 102/62 L 95 Nasal Cannula 06/13/23 21:00 Nasal Cannula 06/13/23 20:00 98 F 110 H 27 H 152/77 H 96 Nasal Cannula 06/13/23 20:00 Nasal Cannula 06/13/23 18:57 Nasal Cannula 06/13/23 18:00 97 H 18 91/76 L 95 Nasal Cannula 06/13/23 16:00 100 H 06/13/23 16:00 94 H 16 95/66 L 95 Nasal Cannula 06/13/23 17:27 Nasal Cannula 06/13/23 16:00 99 H 96 Nasal Cannula 06/13/23 15:24 98.0 F 06/13/23 15:22 Nasal Cannula 06/13/23 12:00 110 H 06/13/23 14:00 104 H 18 106/84 L 94 L Nasal Cannula 06/13/23 13:50 Nasal Cannula 06/13/23 12:00 64 18 107/73 L 97 Nasal Cannula 06/13/23 11:35 98.2 F 06/13/23 10:52 Nasal Cannula 06/13/23 10:03 107 H 24 104/65 L 96 Nasal Cannula 06/13/23 09:00 Nasal Cannula O2 Flow Rate 06/14/23 08:00 06/14/23 04:00 06/14/23 06:00 2 06/14/23 05:00 2 06/14/23 04:00 2 06/14/23 04:00 2 06/14/23 00:00 06/13/23 20:00 06/14/23 00:00 2 06/14/23 02:00 2 06/14/23 03:00 2 06/14/23 01:00 2 06/13/23 23:00 2 06/13/23 22:00 2 06/13/23 21:00 2 06/13/23 20:00 2 06/13/23 20:00 2 06/13/23 18:57 2 06/13/23 18:00 2 06/13/23 16:00 06/13/23 16:00 2 06/13/23 17:27 2 06/13/23 16:00 2 06/13/23 15:24 06/13/23 15:22 2 06/13/23 12:00 06/13/23 14:00 2 06/13/23 13:50 06/13/23 12:00 2 06/13/23 11:35 06/13/23 10:52 4 06/13/23 10:03 4 06/13/23 09:00 4 Intake and Output 06/13/23 06/14/23 06/14/23 19:59 03:59 11:59 Intake Total 957.416 / 957.416 240 / 1197.416 Output Total 0 / 0 Balance 957.416 / 957.416 -15 / 942.416 240 / 1182.416 Intake: Intake, Oral Amount 750 / 750 240 / 990 Intake, Other Amount 115 / 115 Intake, Total IV Amount 92.416 / 92.416 Output: Output, Urine Amount 0 / 0 Other: Number of Unmeasured Voids 1 1 1 Number of Bowel Movements 1 1 Weight 152 lb 8.006 oz 151 lb 14.4 oz Patient Weight 06/14/23 11:59 Weight 151 lb 14.4 oz Laboratory Results - last 24 hr 06/13/23 06:41: Total Counted 100, Neutrophils % (Manual) 86 H, Band Neutrophils % 5.0, Lymphocytes % (Manual) 6 L, Monocytes % (Manual) 3, Platelet Estimate Normal, RBC Morphology Normal, Polychromasia 1+, Hypochromasia 1+, Macrocytosis 1+, Spherocytes 1+ 06/14/23 06:25: WBC 14.9 H, RBC 3.62 L, Hgb 11.2 L, Hct 36.0 L, MCV 99.6 H, MCH 31.1, MCHC 31.2 L, RDW 18.1 H, Plt Count 447 H, MPV 7.8, Neut % (Auto) 89.9 H, Lymph % (Auto) 7.2 L, [place] % (Auto) 2.1, Eos % (Auto) 0.7, Baso % (Auto) 0.1, Neut # (Auto) 13.4 H, Lymph # (Auto) 1.1, [place] # (Auto) 0.3, Eos # (Auto) 0.1, Baso # (Auto) 0.0, Sodium 136, Potassium 3.5, Chloride 102, Carbon Dioxide 30, Anion Gap 7.5, BUN 11, Creatinine 0.60, Estimated Creat Clear 55, Estimated GFR 98, Est GFR ( Amer) 119, Glucose 81, Calcium 8.3 L I & O for Labs for Last 24 Hours: Intake & Output 06/11/23 06/12/23 06/13/23 06/14/23 11:59 11:59 11:59 11:59 Intake Total 39.000 / 39.000 4314.50 / 4314.50 1197.416 / 1197.416 Output Total 0 / 0 0 Balance 39.000 / 39.000 4314.50 / 4314.50 1182.416 / 1182.416 Weight 152 lb 8 oz 152 lb 8.006 oz 151 lb 14.4 oz Microbiology Reports for the Last 24 Hours: Microbiology 06/12/23 04:25 Sputum - Expectorated Sputum Gram Stain - Final Constitutional: Present mild distress (Currently sitting on the bedside leaning over. Labored respiratory effort after activity.) Respiratory: Present accessory muscle use, decreased breath sounds and crackles (Left base) Cardiac: Present Irregularly Regular (Monitor showing atrial fibs currently with ventricular rate 130-148.) GI: Present soft and normal bowel sounds; Absent distention or tenderness Extremities: Present tenderness (Left lower extremity), edema (Minimal swelling in left lower extremity) and calf tenderness (Left lower extremity) Neuro: Present alert and oriented x 3 Assessment and Plan *Assessment and plan (1) Atrial fibrillation with RVR: Status: Acute Category: Medical Code(s): I48.91 - Unspecified atrial fibrillation (2) HTN (hypertension): Status: Acute Category: Medical Code(s): I10 - Essential (primary) hypertension (3) Pneumonia: Status: Acute Qualifiers: Laterality: bilateral Pneumonia type: due to unspecified organism Category: Medical Code(s): J18.9 - Pneumonia, unspecified organism (4) Back pain: Status: Acute Category: Medical Code(s): M54.9 - Dorsalgia, unspecified (5) Constipation: Status: Acute Category: Medical Code(s): K59.00 - Constipation, unspecified Plan Patient feels a little better today. She continues to be in a. fib with RVR, HR up to 150 this morning. Notified cardiology, plan to make medication changes, continue same treatment for pneumonia.
[2023-06-14] MEDS: FUROSEMIDE 40MG/4ML VIAL 40 MG IV ×2 (08:20→16:33)
[2023-06-14 08:35] LABS: Eosinophils % 1 % (0-3); Lymphocytes % 6 % (10-50); Neutrophils % 93 % (42-76); Total Cells Counted 100
[2023-06-14 08:36] LABS: Anisocytosis 1+; Macrocytosis 1+; Platelet Estimate Slight Increase
[2023-06-14 08:38] LABS: Ovalocytes 1+
[2023-06-14] MEDS: CEFTRIAXONE 1 GM 1 GM in 0.9 % SODIUM CHLORIDE 50 ML IV ×2 (08:59→20:43)
[2023-06-14] MEDS: EZETIMIBE 10MG TABLET 10 MG PO (09:00)
[2023-06-14] MEDS: predniSONE 20MG TAB 20 MG PO (09:00)
[2023-06-14] MEDS: METOPROLOL SUCCINATE XL 100MG TABLET 200 MG PO (09:00)
[2023-06-14] MEDS: FOLIC ACID 1MG TABLET 1 MG PO (09:00)
[2023-06-14] MEDS: dilTIAZem ER 240MG CAPSULE 240 MG PO (09:03)
[2023-06-14] MEDS: METOPROLOL TARTRATE 5MG/5ML VIAL 5 MG IV (09:28)
--- NOTE | 2023-06-14 11:16 | CT_ITS ---
FINAL REPORT TECHNIQUE: Thin section axial CT images were obtained from the lung apices to the upper abdomen. IV contrast was administered. MIP 3-D reformats were obtained. This study was performed with techniques to keep radiation doses as low as reasonably achievable (ALARA). Individualized dose reduction techniques using automated exposure control or adjustment of mA and/or kV according to the patient's size were employed. CLINICAL HISTORY: soa, right pleural effusion FINDINGS: The heart size is normal. There is mediastinal adenopathy. A subcarinal lymph node measures 26 mm consistent with metastatic adenopathy. There are several other mildly enlarged mediastinal and hilar lymph nodes. There is no filling defect to suggest PE. There is no aortic dissection. There is a small pericardial effusion. There is a lobulated right infrahilar mass. This is difficult to measure but it measures approximately 5.8 x 4.6 cm. This mass obstructs the bronchus intermedius and has an appearance consistent with neoplasm. There are moderate right and small left pleural effusions. There is right lower lobe collapse. There is right middle lobe atelectasis. Limited images of the upper abdomen demonstrate no acute abnormality. There is a 14 mm nodule anterior to the left shoulder on image 12 consistent with neoplasm. IMPRESSION: No pulmonary embolism. 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 14 mm nodule anterior to the left shoulder consistent with neoplasm. Reviewed, Interpreted and Dictated by Nicholas Reed III, MD Transcribed by Freddy Elder Authenticated and [facility]
[2023-06-14] MEDS: dilTIAZem HCL 100 MG in 0.9 % SODIUM CHLORIDE 100 ML IV (11:25)
[2023-06-14 11:42] LABS: NT Pro Brain Natriuretic Pep. 4150 pg/mL (0-125)
[2023-06-14] MEDS: IOPAMIDOL-370 (76%);100ML BOTTLE 70 ML IV (12:30)
[2023-06-14] MEDS: 0.9 % SODIUM CHLORIDE 50 ML VIAL IV (12:30)
[2023-06-14 12:50] LABS: Microscopic, Urine URINE MICROSCOPIC (MICROSCOPIC)
[2023-06-14 12:58] LABS: Appearance,Urine CLEAR (Clear); Bilirubin,Urine Negative (Negative); Blood, Urine Negative (Negative); Color,Urine YELLOW (Yellow); Glucose,Urine (UA) Negative (Negative); Ketones,Urine Negative (Negative); Leukocyte Esterase,Urine Negative (Negative); Nitrate,Urine Negative (Negative); Protein,Urine Negative (Negative); Urobilinogen,Urine 0.2 EU/dl (0.2)
[2023-06-14] MEDS: CALCIUM CARBONATE 500MG CHEWTAB 1000 MG PO (13:59)
[2023-06-14 14:17] LABS: Bacteria,Urine Trace /lpf; Squamous Epithelial Cell,Urine Occasional #/hpf (0-5)
--- NOTE | 2023-06-14 14:35 | PC.NURSE ---
Stefania discussed need for patient transfer to higher level of care for new diagnosis of pulmonary nodule. Dr. Rodriguez and Tiffany Bingham notified. Plan to start transfer tomorrow.
[2023-06-14] MEDS: APAP PO (17:12)
[2023-06-14] MEDS: TRAMADOL PO (17:12)
[2023-06-14] MEDS: RIVAROXABAN 10MG TABLET 20 MG PO (17:14)
--- NOTE | 2023-06-14 17:41 | PC.NURSE ---
Dr. Shore at bedside.
[2023-06-14] MEDS: GABAPENTIN 300MG CAPSULE 300 MG PO (20:43)
[2023-06-14] MEDS: AZITHROMYCIN 250MG TABLET 500 MG PO (20:43)
[2023-06-15] VITALS (17 sets, daily range): BP systolic 98–152; BP diastolic 50–83; PULSE 78–124; RESP 16–37; TEMP 36.4–36.9; O2SAT 91–96; BMI 24.4
[2023-06-15] MEDS: dilTIAZem HCL 100 MG in 0.9 % SODIUM CHLORIDE 100 ML IV (03:53)
[2023-06-15] MEDS: LEVOTHYROXINE 50MCG (0.05MG) TAB 50 MCG PO (06:21)
[2023-06-15] MEDS: FORMOTEROL IH ×2 (07:40→17:45)
[2023-06-15] MEDS: BUDESONIDE IH ×2 (07:40→17:45)
--- NOTE | 2023-06-15 08:02 | P.PN_ITS ---
Subjective *Date: 06/15/23 *Time: 08:02 Medical Exam Vital signs and Labs for Last 24 Hours: Vital Signs Temp Pulse Pulse Resp BP Pulse Ox O2 Del Method 06/15/23 07:40 91 L Nasal Cannula 06/15/23 07:00 Nasal Cannula 06/15/23 04:00 121 H 06/15/23 00:00 98 H 06/14/23 20:00 112 H 06/15/23 06:00 111 H 24 128/82 96 Nasal Cannula 06/15/23 05:00 Nasal Cannula 06/15/23 04:00 98.4 F 116 H 37 H 121/83 91 L Nasal Cannula 06/15/23 04:00 Nasal Cannula 06/15/23 03:00 Nasal Cannula 06/15/23 02:00 112 H 23 102/61 L 91 L Nasal Cannula 06/15/23 01:00 Nasal Cannula 06/15/23 00:00 97.8 F 101 H 16 152/54 H Nasal Cannula 06/14/23 23:00 Nasal Cannula 06/14/23 22:00 117 H 29 H 169/54 H 90 L Nasal Cannula 06/14/23 21:00 Nasal Cannula 06/14/23 20:00 98.6 F 111 H 26 H 101/68 L 95 Room Air 06/14/23 20:00 Nasal Cannula 06/14/23 18:56 Nasal Cannula 06/14/23 18:00 122 H 24 111/61 93 L Nasal Cannula 06/14/23 17:00 Nasal Cannula 06/14/23 16:00 90 06/14/23 16:00 91 H 22 105/66 L 96 Nasal Cannula 06/14/23 15:32 Nasal Cannula 06/14/23 15:32 98.3 F 06/14/23 15:00 Nasal Cannula 06/14/23 14:00 98 H 22 115/63 94 L Nasal Cannula 06/14/23 12:00 120 H 24 119/64 92 L Nasal Cannula 06/14/23 13:00 Nasal Cannula 06/14/23 11:00 Nasal Cannula 06/14/23 11:17 98.1 F 06/14/23 10:00 122 H 29 H 143/90 H 95 Nasal Cannula 06/14/23 09:00 Nasal Cannula O2 Flow Rate 06/15/23 07:40 4 06/15/23 07:00 4 06/15/23 04:00 06/15/23 00:00 06/14/23 20:00 06/15/23 06:00 4 06/15/23 05:00 4 06/15/23 04:00 4 06/15/23 04:00 2 06/15/23 03:00 4 06/15/23 02:00 2 06/15/23 01:00 2 06/15/23 00:00 2 06/14/23 23:00 2 06/14/23 22:00 2 06/14/23 21:00 2 06/14/23 20:00 06/14/23 20:00 2 06/14/23 18:56 2 06/14/23 18:00 2 06/14/23 17:00 2 06/14/23 16:00 06/14/23 16:00 2 06/14/23 15:32 2 06/14/23 15:32 06/14/23 15:00 2 06/14/23 14:00 2 06/14/23 12:00 2 06/14/23 13:00 2 06/14/23 11:00 2 06/14/23 11:17 06/14/23 10:00 2 06/14/23 09:00 2 Intake and Output 06/14/23 06/15/23 06/15/23 23:59 07:59 15:59 Intake Total 610 / 1033 165.333 / 165.333 Output Total 1550 / 3100 1200 / 1200 Balance -940 / -2067 -1034.667 / -1034.667 Intake: Intake, Oral Amount 240 / 580 Intake, Other Amount 83 / 83 Intake, Total IV Amount 370 / 370 82.333 / 82.333 0.9 % Sodium Chloride 1000ML 1, 300 / 300 000 ml @ 75 mls/hr IV .[id number] [facility] Rx#:[id number] Ceftriaxone 1 gm 1 gm In 0.9 % 50 / 50 Sodium Chloride 50 ml @ 100 mls /hr IV Q12H [facility] Rx#:[id number] dilTIAZem HCL 100 mg In 0.9 % 20 / 20 Sodium Chloride 100 ml @ 5 MG/ HR 5 mls/hr IV .Q20H [facility] Rx#: [id number] Output: Output, Urine Amount 1550 / 3100 1200 / 1200 Other: Number of Unmeasured Voids 1 Number of Bowel Movements 1 Weight 68.946 kg Patient Weight 06/15/23 23:59 Weight 68.946 kg Laboratory Results - last 24 hr 06/14/23 06:25: Total Counted 100, Neutrophils % (Manual) 93 H, Lymphocytes % (Manual) 6 L, Eosinophils % (Manual) 1, Platelet Estimate Slight increase, Anisocytosis 1+, Macrocytosis 1+, Ovalocytes 1+, NT-Pro-B Natriuret Pep 4150 H 06/14/23 10:19: Urine Color Yellow, Urine Appearance Clear, Urine pH 6.0, Ur Specific [place] 1.010, Urine Protein Negative, Urine Glucose (UA) Negative, Urine Ketones Negative, Urine Blood Negative, Urine Nitrate Negative, Urine Bilirubin Negative, Urine Urobilinogen 0.2, Ur Leukocyte Esterase Negative, Urine RBC None, Urine WBC None, Ur Squamous Epith Cells Occasional, Urine Bacteria Trace I & O for Labs for Last 24 Hours: Intake & Output 06/12/23 06/13/23 06/14/23 06/15/23 23:59 23:59 23:59 23:59 Intake Total 1450.000 / 3919.000 3860.916 / 3860.916 950 / 1033 165.333 / 165.333 Output Total 0 / 0 3100 / 3100 1200 / 1200 Balance 1450.000 / 3919.000 3845.916 / 3845.916 -2150 / -2067 -1034.667 / - 1034.667 Weight 69.173 kg 69.173 kg 68.901 kg 68.946 kg Microbiology Reports for the Last 24 Hours: Microbiology 06/12/23 04:25 Sputum - Expectorated Sputum Gram Stain - Final 06/12/23 04:25 Sputum - Expectorated Sputum Sputum Culture - Preliminary The patient's infection will respond to the chosen ABx?: Yes (SPUTUM PENDING - INITIAL GRAM NEG RODS, GRAM POS COCCI, AFEBRILE OVER 24 HR) Is the patient receiving the right drug, dose, and route?: Yes Could a more targeted ABx be ordered?: No
--- NOTE | 2023-06-15 08:37 | EXP.ACUTE.PN ---
Subjective *Date: 06/15/23 *Time: 09:09 Interval history: Patient denies any pain today and her SOA has improved unless she gets up and moves. She had a hard time resting last night as she is anxious about transfer today. Medical Exam Vital signs and Labs for Last 24 Hours: Vital Signs Temp Pulse Pulse Resp BP Pulse Ox O2 Del Method 06/15/23 08:00 98.3 F 06/15/23 07:40 91 L Nasal Cannula 06/15/23 07:57 124 H 24 114/50 L 96 Nasal Cannula 06/15/23 07:57 118 H 96 Room Air 06/15/23 07:00 Nasal Cannula 06/15/23 04:00 121 H 06/15/23 00:00 98 H 06/14/23 20:00 112 H 06/15/23 06:00 111 H 24 128/82 96 Nasal Cannula 06/15/23 05:00 Nasal Cannula 06/15/23 04:00 98.4 F 116 H 37 H 121/83 91 L Nasal Cannula 06/15/23 04:00 Nasal Cannula 06/15/23 03:00 Nasal Cannula 06/15/23 02:00 112 H 23 102/61 L 91 L Nasal Cannula 06/15/23 01:00 Nasal Cannula 06/15/23 00:00 97.8 F 101 H 16 152/54 H Nasal Cannula 06/14/23 23:00 Nasal Cannula 06/14/23 22:00 117 H 29 H 169/54 H 90 L Nasal Cannula 06/14/23 21:00 Nasal Cannula 06/14/23 20:00 98.6 F 111 H 26 H 101/68 L 95 Room Air 06/14/23 20:00 Nasal Cannula 06/14/23 18:56 Nasal Cannula 06/14/23 18:00 122 H 24 111/61 93 L Nasal Cannula 06/14/23 17:00 Nasal Cannula 06/14/23 16:00 90 06/14/23 16:00 91 H 22 105/66 L 96 Nasal Cannula 06/14/23 15:32 Nasal Cannula 06/14/23 15:32 98.3 F 06/14/23 15:00 Nasal Cannula 06/14/23 14:00 98 H 22 115/63 94 L Nasal Cannula 06/14/23 12:00 120 H 24 119/64 92 L Nasal Cannula 06/14/23 13:00 Nasal Cannula 06/14/23 11:00 Nasal Cannula 06/14/23 11:17 98.1 F 06/14/23 10:00 122 H 29 H 143/90 H 95 Nasal Cannula 06/14/23 09:00 Nasal Cannula O2 Flow Rate 06/15/23 08:00 06/15/23 07:40 4 06/15/23 07:57 4 06/15/23 07:57 4 06/15/23 07:00 4 06/15/23 04:00 06/15/23 00:00 06/14/23 20:00 06/15/23 06:00 4 06/15/23 05:00 4 06/15/23 04:00 4 06/15/23 04:00 2 06/15/23 03:00 4 06/15/23 02:00 2 06/15/23 01:00 2 06/15/23 00:00 2 06/14/23 23:00 2 06/14/23 22:00 2 06/14/23 21:00 2 06/14/23 20:00 06/14/23 20:00 2 06/14/23 18:56 2 06/14/23 18:00 2 06/14/23 17:00 2 06/14/23 16:00 06/14/23 16:00 2 06/14/23 15:32 2 06/14/23 15:32 06/14/23 15:00 2 06/14/23 14:00 2 06/14/23 12:00 2 06/14/23 13:00 2 06/14/23 11:00 2 06/14/23 11:17 06/14/23 10:00 2 06/14/23 09:00 2 Intake and Output 06/14/23 06/15/23 06/15/23 19:59 03:59 11:59 Intake Total 610 / 1135.333 165.333 / 1135.333 360 / 1135.333 Output Total 1550 / 2750 1200 / 2750 Balance -940 / -1614.667 165.333 / -1614.667 -840 / -1614.667 Intake: Intake, Oral Amount 240 / 600 360 / 600 Intake, Other Amount 83 / 83 Intake, Total IV Amount 370 / 452.333 82.333 / 452.333 0.9 % Sodium Chloride 1000ML 1, 300 / 300 000 ml @ 75 mls/hr IV .[id number] [facility] Rx#:[id number] Ceftriaxone 1 gm 1 gm In 0.9 % 50 / 50 Sodium Chloride 50 ml @ 100 mls /hr IV Q12H [facility] Rx#:[id number] dilTIAZem HCL 100 mg In 0.9 % 20 / 20 Sodium Chloride 100 ml @ 5 MG/ HR 5 mls/hr IV .Q20H [facility] Rx#: [id number] Output: Output, Urine Amount 1550 / 2750 1200 / 2750 Other: Number of Voids 0 Number of Unmeasured Voids 1 Number of Bowel Movements 1 Weight 152 lb Patient Weight 06/15/23 11:59 Weight 152 lb Laboratory Results - last 24 hr 06/14/23 06:25: Total Counted 100, Neutrophils % (Manual) 93 H, Lymphocytes % (Manual) 6 L, Eosinophils % (Manual) 1, Platelet Estimate Slight increase, Anisocytosis 1+, Macrocytosis 1+, Ovalocytes 1+, NT-Pro-B Natriuret Pep 4150 H 06/14/23 10:19: Urine Color Yellow, Urine Appearance Clear, Urine pH 6.0, Ur Specific [place] 1.010, Urine Protein Negative, Urine Glucose (UA) Negative, Urine Ketones Negative, Urine Blood Negative, Urine Nitrate Negative, Urine Bilirubin Negative, Urine Urobilinogen 0.2, Ur Leukocyte Esterase Negative, Urine RBC None, Urine WBC None, Ur Squamous Epith Cells Occasional, Urine Bacteria Trace I & O for Labs for Last 24 Hours: Intake & Output 06/12/23 06/13/23 06/14/23 06/15/23 11:59 11:59 11:59 11:59 Intake Total 39.000 / 866.980 5275.50 / 4314.50 1297.416 / 0653.513 0693.333 / 1135.333 Output Total 0 / 0 0 / 0 1565 / 1565 2750 / 2750 Balance 39.000 / 415.513 4471.50 / 4314.50 -267.584 / -267.584 -1614.667 / -1614.667 Weight 152 lb 8 oz 152 lb 8.006 oz 151 lb 14.4 oz 152 lb Microbiology Reports for the Last 24 Hours: Microbiology 06/12/23 04:25 Sputum - Expectorated Sputum Gram Stain - Final 06/12/23 04:25 Sputum - Expectorated Sputum Sputum Culture - Preliminary Constitutional: Present no acute distress Respiratory: Present decreased breath sounds and CTA bilaterally; Absent wheezes or crackles Comment:: Irregularly irregular - rate in the 120's GI: Present soft and normal bowel sounds; Absent distention or tenderness Extremities: Present edema (improved); Absent calf tenderness Neuro: Present alert and oriented x 3 Assessment and Plan *Assessment and plan (1) Atrial fibrillation with RVR: Status: Acute Category: Medical Code(s): I48.91 - Unspecified atrial fibrillation (2) HTN (hypertension): Status: Acute Category: Medical Code(s): I10 - Essential (primary) hypertension (3) Pneumonia: Status: Acute Qualifiers: Laterality: bilateral Pneumonia type: due to unspecified organism Category: Medical Code(s): J18.9 - Pneumonia, unspecified organism (4) Back pain: Status: Acute Category: Medical Code(s): M54.9 - Dorsalgia, unspecified (5) Constipation: Status: Acute Category: Medical Code(s): K59.00 - Constipation, unspecified (6) Lung mass: Status: Acute Category: Medical Code(s): R91.8 - Other nonspecific abnormal finding of lung field (7) Pericardial effusion: Status: Acute Category: Medical Code(s): I31.39 - Other pericardial effusion (noninflammatory) (8) Pleural effusion: Status: Acute Category: Medical Code(s): J90 - Pleural effusion, not elsewhere classified Plan Chest CTA showed :No pulmonary embolism. 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 14 mm nodule anterior to the left shoulder consistent with neoplasm. Patient is awaiting transfer to [facility] for biopsy. Symptomatically she has improved. She is no longer SOA at rest. She is no longer coughing up sputum. Her sputum culture is still pending. She remains in afib. Cardiology to follow. Dr. Rodriguez entry - Saw patient, agree with above note. Awaiting bed at [facility].
[2023-06-15] MEDS: CEFTRIAXONE 1 GM 1 GM in 0.9 % SODIUM CHLORIDE 50 ML IV ×2 (08:44→21:04)
[2023-06-15] MEDS: EZETIMIBE 10MG TABLET 10 MG PO (08:46)
[2023-06-15] MEDS: POLYETHYLENE GLYCOL 3350 17 GM PACKET PO (08:46)
[2023-06-15] MEDS: FOLIC ACID 1MG TABLET 1 MG PO (08:47)
[2023-06-15] MEDS: predniSONE 20MG TAB 20 MG PO (08:47)
[2023-06-15] MEDS: FUROSEMIDE 40MG/4ML VIAL 40 MG IV ×2 (08:47→17:01)
[2023-06-15] MEDS: PANTOPRAZOLE 40MG TABLET 40 MG PO ×2 (08:47→20:53)
[2023-06-15] MEDS: METOPROLOL SUCCINATE XL 100MG TABLET 200 MG PO (08:47)
[2023-06-15] MEDS: dilTIAZem ER 240MG CAPSULE 240 MG PO (08:47)
[2023-06-15] MEDS: dilTIAZem HCL 100 MG in 0.9 % SODIUM CHLORIDE 100 ML 10 MG IV ×2 (08:59→15:22)
--- NOTE | 2023-06-15 09:51 | EXP.CARD.PN ---
Subjective Subjective Date: 06/15/23 Time: 08:00 Principal diagnosis: afib rvr, pneumonia vs. lung mass Interval history: Patient doing well this morning. Reports shortness of air has greatly improved with diuresing. Patient remains on Dilt drip with heart rate in the low 120s. Morning labs reviewed. Transfer to [facility] pending. Exam Data for Last 24 hours Vital signs and Labs for Last 24 Hours: Temp Pulse Resp BP Pulse Ox O2 Del Method O2 Flow Rate 98.3 F 109 H 22 122/57 L 93 L Nasal Cannula 4 06/15/23 08:00 06/15/23 09:47 06/15/23 09:47 06/15/23 09:47 06/15/23 09:47 06/15/23 09:47 06/15/23 09:47 Laboratory Results - last 24 hr 06/14/23 06:25: NT-Pro-B Natriuret Pep 4150 H 06/14/23 10:19: Urine Color Yellow, Urine Appearance Clear, Urine pH 6.0, Ur Specific [place] 1.010, Urine Protein Negative, Urine Glucose (UA) Negative, Urine Ketones Negative, Urine Blood Negative, Urine Nitrate Negative, Urine Bilirubin Negative, Urine Urobilinogen 0.2, Ur Leukocyte Esterase Negative, Urine RBC None, Urine WBC None, Ur Squamous Epith Cells Occasional, Urine Bacteria Trace I & O for Last 24 hours: Intake & Output 06/12/23 06/13/23 06/14/23 06/15/23 23:59 23:59 23:59 23:59 Intake Total 1450.000 / 3919.000 3860.916 / 3860.916 950 / 1033 550.833 / 550.833 Output Total 0 / 0 3100 / 3100 1200 / 1200 Balance 1450.000 / 3919.000 3845.916 / 3845.916 -2150 / -2067 -649.167 / -649.167 Weight 152 lb 8 oz 152 lb 8.006 oz 151 lb 14.4 oz 152 lb Microbiology Reports for the Last 24 Hours: Microbiology 06/12/23 04:25 Sputum - Expectorated Sputum Gram Stain - Final 06/12/23 04:25 Sputum - Expectorated Sputum Sputum Culture - Preliminary Constitutional Constitutional: no acute distress *Routine Respiratory Exam Respiratory: Present CTA bilaterally, rhonchi, wheezes and symmetric chest movement *Routine Cardiovascular Exam Cardiovascular: Present Normal S1, Normal S2, irregular rhythm and irregularly irregular *Routine Abdominal Exam Abdominal: Present soft and normoactive bowel sounds; Absent tenderness *Routine Extremities Exam Extremities: Present full ROM and normal capillary refill; Absent edema *Routine Skin Exam Skin: Present intact, dry and warm Detailed Neck Exam: Thyroids Thyroid: Absent bruit Progress Note: A&P Assessment and plan (1) Atrial fibrillation with RVR: Status: Acute (2) HTN (hypertension): Status: Acute (3) Pneumonia: Status: Acute (4) Back pain: Status: Acute (5) Constipation: Status: Acute (6) Lung mass: Status: Acute (7) Pericardial effusion: Status: Acute (8) Pleural effusion: Status: Acute Assessment and Plan Assessment and Plan for All Diagnoses:: Afib rvr chadsvasc score 3 Dyspnea Small right pleural effusion -Continue Xarelto 20 mg p.o. daily -Continue home dose of metoprolol 200 mg daily and diltiazem 240 daily -Resume dilt drip for rate control less than 120 -Repeat chest x-ray 06/13 shows worsening right lung base effusion -Lasix 40 mg IV x BID -Echo 06/13:Overall LV systolic function, mild RV dilation with mild reduction in RV function, mild biatrial dilation, mild AI, MR, TR and PI, RVSP is 30+ -CTA chest: No pulmonary embolism, right infrahilar mass obstructing the bronchus intermedius consistent with neoplasm with associated metastatic adenopathy. 14 mm nodule anterior to the left shoulder consistent with neoplasm. 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 14 mm nodule anterior to the left shoulder consistent with neoplasm. -Given no pulmonary or oncology coverage at this facility this week cardiology recommends transfer to a higher level of care facility for further evaluation per pulmonology and oncology. Hypertension -Currently well-controlled continue home meds Pneumonia -Defer to primary service CV summary 06/15/2023: Transfer to [facility] is pending. Patient doing well this morning, reports shortness of air has greatly improved. Patient remains in A-fib RVR with a heart rate less than 120 which is acceptable given patient's acute illness. Recommend continue home medications and Dilt drip to maintain heart rate less than 120. Continue to diurese with Lasix 40 mg IV twice daily as patient awaits transfer.
[2023-06-15] MEDS: APAP PO (11:33)
[2023-06-15] MEDS: TRAMADOL PO (11:33)
--- NOTE | 2023-06-15 12:02 | PC.NURSE ---
Called [facility] transfer [place] for update on bed status, pt remains on wait list at this time.
--- NOTE | 2023-06-15 16:48 | PC.NURSE ---
pt alert and oriented this shift. ls diminished t/o. pt was on 4LNC at beginning of shift, titrated to 2LNC- sats currently 92%. pt denies SOA at this time. pt has intermittent non-productive cough. pt did report pain after coughing and given prn pain med. pt remains on Cardizem at 10 ml/hr for afib. Goal per cardiology to keep heart rate <120 bpm. pt also receiving p.o. Cardizem. pt's rate has ranged 70's-130's t/o today. abdomen soft, nontender. f/c in place and draining. pt does have swelling and discoloration to BLE. pt getting IV Lasix BID.pt has been concerned and anxious regarding transfer and plan of care once transferred. pt remains on the wait list at [facility] [place]. [facility] [place] was called at 1200 per this nurse for an update and was just informed that patient remains on the list but unable to give an update on when pt could get a bed. pt's has been at bedside and updated on poc. pt's call light w/i reach.
[2023-06-15] MEDS: RIVAROXABAN 10MG TABLET 20 MG PO (17:01)
--- NOTE | 2023-06-15 18:06 | PC.NURSE ---
[facility] transfer center called at this time and stated still no beds. pt's updated and Dr. Rodriguez.
--- NOTE | 2023-06-15 18:09 | PC.NURSE ---
Dr. Rodriguez at pt's bedside rounding at this time. Per verbal order per MD to start weaning pt's Cardizem drip and to give 60 mg Cardizem PO q 8hrs prn to keep pt's heart rate below [address] Rodriguez stated he would enter the order.
--- NOTE | 2023-06-15 18:31 | PC.NURSE ---
60 mg PO Cardizem not available in house. 2-30 mg tabs pulled. called and verified with [facility]. Instructed he would change the order in the computer so we can scan the medication.
[2023-06-15] MEDS: dilTIAZem 30MG TABLET 60 MG PO (18:35)
[2023-06-15] MEDS: AZITHROMYCIN 250MG TABLET 500 MG PO (20:53)
[2023-06-15] MEDS: GABAPENTIN 300MG CAPSULE 300 MG PO (20:53)
[2023-06-16] VITALS (12 sets, daily range): BP systolic 85–119; BP diastolic 49–81; PULSE 80–113; RESP 14–36; TEMP 36.3–36.9; O2SAT 90–95; BMI 25.2
--- NOTE | 2023-06-16 02:44 | PC.NURSE ---
Dilt gtt titrated to off at this time.
--- NOTE | 2023-06-16 05:02 | PC.NURSE ---
Patient had uneventful night. Remained A&O X 4, appearing and verbalizing some anxiety about transferring hospitals and finding out more about diagnosis. Provided pt with reassurance. Pt was Afib on monitor, weaned off Dilt gtt. On 2L NC, no complaints of SOB. Smart in place w/ good urine output. Urine does look slightly blood-tinged and kamilla in color. No BM. Needed PRN PO Dilt towards end of shift. Vitals remained stable overnight. No complaints of pain.
[2023-06-16] MEDS: dilTIAZem 30MG TABLET 60 MG PO (05:11)
[2023-06-16] MEDS: LEVOTHYROXINE 50MCG (0.05MG) TAB 50 MCG PO (06:08)
--- NOTE | 2023-06-16 06:10 | PC.NURSE ---
Gave 50 mcg of Levothyroxine at this time, barcode would not scan on JUL.
[2023-06-16] MEDS: BUDESONIDE IH ×2 (06:24→18:38)
[2023-06-16] MEDS: FORMOTEROL IH ×2 (06:24→18:38)
--- NOTE | 2023-06-16 08:23 | EXP.ACUTE.PN ---
Subjective *Date: 06/16/23 *Time: 08:59 Interval history: Patient has no new complaints today. She just cannot get comfortable. She denies any pain and slept off and on throughout the night. Shortness of air is improved. Heart rate has slowed. Rate this am is 106 on telemetry. Medical Exam Vital signs and Labs for Last 24 Hours: Vital Signs Temp Pulse Pulse Resp BP Pulse Ox O2 Del Method 06/16/23 06:45 Nasal Cannula 06/16/23 06:24 90 L Nasal Cannula 06/16/23 06:00 98 H 36 H 115/71 90 L Nasal Cannula 06/16/23 04:00 110 H 06/16/23 05:00 Nasal Cannula 06/16/23 04:00 98.1 F 95 H 24 119/71 Nasal Cannula 06/16/23 03:40 92 L Nasal Cannula 06/16/23 02:54 Nasal Cannula 06/16/23 02:00 96 H 26 H 118/81 Nasal Cannula 06/16/23 00:00 80 06/16/23 01:00 Nasal Cannula 06/16/23 00:00 98.2 F 98 H 14 113/69 91 L Nasal Cannula 06/15/23 22:57 Nasal Cannula 06/15/23 22:00 92 H 18 98/63 L Nasal Cannula 06/15/23 20:00 90 06/15/23 21:00 Nasal Cannula 06/15/23 20:00 97.7 F 99 H 30 H 106/67 L 93 L Nasal Cannula 06/15/23 19:59 19 92 L Nasal Cannula 06/15/23 18:38 Nasal Cannula 06/15/23 18:00 108 H 22 101/69 L 93 L Nasal Cannula 06/15/23 16:00 80 06/15/23 17:00 Nasal Cannula 06/15/23 16:00 97.8 F 06/15/23 15:33 78 93 L Nasal Cannula 06/15/23 15:00 Nasal Cannula 06/15/23 14:00 83 18 104/65 L 91 L Nasal Cannula 06/15/23 12:00 100 H 06/15/23 13:00 Nasal Cannula 06/15/23 11:54 97.6 F 06/15/23 11:00 Nasal Cannula 06/15/23 09:47 109 H 22 122/57 L 93 L Nasal Cannula 06/15/23 09:00 Nasal Cannula O2 Flow Rate 06/16/23 06:45 2 06/16/23 06:24 2 06/16/23 06:00 2 06/16/23 04:00 06/16/23 05:00 2 06/16/23 04:00 2 06/16/23 03:40 2 06/16/23 02:54 2 06/16/23 02:00 2 06/16/23 00:00 06/16/23 01:00 2 06/16/23 00:00 2 06/15/23 22:57 2 06/15/23 22:00 2 06/15/23 20:00 06/15/23 21:00 2 06/15/23 20:00 2 06/15/23 19:59 2 06/15/23 18:38 2 06/15/23 18:00 2 06/15/23 16:00 06/15/23 17:00 2 06/15/23 16:00 06/15/23 15:33 2 06/15/23 15:00 2 06/15/23 14:00 2 06/15/23 12:00 06/15/23 13:00 2 06/15/23 11:54 06/15/23 11:00 4 06/15/23 09:47 4 06/15/23 09:00 4 Intake and Output 06/15/23 06/16/23 06/16/23 19:59 03:59 11:59 Intake Total 925.000 / 1602.292 137.292 / 1602.292 540 / 1602.292 Output Total 1999 / 2700 350 / 2700 350 / 2700 Balance -1075.000 / -1097.708 -212.708 / -1097.708 190 / -1097.708 Intake: Intake, Oral Amount 720 / 1360 100 / 1360 540 / 1360 Intake, Total IV Amount 205.000 / 242.292 37.292 / 242.292 dilTIAZem HCL 100 mg In 0.9 % 109 / 109 Sodium Chloride 100 ml @ 10 MG/ HR 10 mls/hr IV .Q10H [facility] Rx#: [id number] Output: Output, Urine Amount 1999 / 2350 350 / 2350 Output, Urine Amount (Catheter) 350 / 350 Smart 350 / 350 Other: Number of Unmeasured Voids 0 Number of Bowel Movements 1 1 Weight 157 lb 7 oz Patient Weight 06/16/23 11:59 Weight 157 lb 7 oz I & O for Labs for Last 24 Hours: Intake & Output 06/13/23 06/14/23 06/15/23 06/16/23 11:59 11:59 11:59 11:59 Intake Total 4314.50 / 4314.50 1297.416 / 2307.303 9312.833 / 7040.381 1549.292 / 1602.292 Output Total 0 / 0 1565 / 1565 2750 / 2750 2700 / 2700 Balance 4314.50 / 4314.50 -267.584 / -267.584 -1589.167 / -1589.167 -1097.708 / -1097.708 Weight 152 lb 8.006 oz 151 lb 14.4 oz 152 lb 157 lb 7 oz Microbiology Reports for the Last 24 Hours: Microbiology 06/12/23 04:25 Sputum - Expectorated Sputum Gram Stain - Final 06/12/23 04:25 Sputum - Expectorated Sputum Sputum Culture - Final Constitutional: Present no acute distress Respiratory: Present decreased breath sounds and CTA bilaterally; Absent wheezes or crackles Comment:: Irregularly irregular - rate 106 GI: Present soft and normal bowel sounds; Absent distention or tenderness Extremities: Present edema (improved); Absent calf tenderness Neuro: Present alert and oriented x 3 Assessment and Plan *Assessment and plan (1) Atrial fibrillation with RVR: Status: Acute Category: Medical Code(s): I48.91 - Unspecified atrial fibrillation (2) HTN (hypertension): Status: Acute Category: Medical Code(s): I10 - Essential (primary) hypertension (3) Pneumonia: Status: Acute Qualifiers: Laterality: bilateral Pneumonia type: due to unspecified organism Category: Medical Code(s): J18.9 - Pneumonia, unspecified organism (4) Back pain: Status: Acute Category: Medical Code(s): M54.9 - Dorsalgia, unspecified (5) Constipation: Status: Acute Category: Medical Code(s): K59.00 - Constipation, unspecified (6) Lung mass: Status: Acute Category: Medical Code(s): R91.8 - Other nonspecific abnormal finding of lung field (7) Pericardial effusion: Status: Acute Category: Medical Code(s): I31.39 - Other pericardial effusion (noninflammatory) (8) Pleural effusion: Status: Acute Category: Medical Code(s): J90 - Pleural effusion, not elsewhere classified Plan Patient stable this am. Awaiting transfer to [facility]. Dr. Rodriguez entry - Saw patient, agree with above note, Transfer out of step down today, check labs.
[2023-06-16] MEDS: APAP PO (09:07)
[2023-06-16] MEDS: TRAMADOL PO (09:07)
[2023-06-16] MEDS: FOLIC ACID 1MG TABLET 1 MG PO (09:07)
[2023-06-16] MEDS: EZETIMIBE 10MG TABLET 10 MG PO (09:07)
[2023-06-16] MEDS: CEFTRIAXONE 1 GM 1 GM in 0.9 % SODIUM CHLORIDE 50 ML IV ×2 (09:10→20:09)
[2023-06-16] MEDS: FUROSEMIDE 40MG/4ML VIAL 40 MG IV (09:10)
[2023-06-16] MEDS: dilTIAZem ER 120MG CAPSULE 360 MG PO (09:14)
[2023-06-16] MEDS: predniSONE 20MG TAB 20 MG PO (09:14)
[2023-06-16] MEDS: METOPROLOL SUCCINATE XL 100MG TABLET 200 MG PO (09:14)
[2023-06-16 09:25] LABS: Basophils % 0.1 % (0.1-2.0); Eosinophils # 0.2 K/mm3 (0.0-0.4); Eosinophils % 1.5 % (0.1-12.0); Hematocrit 34.1 % (37.0-47.0); Hemoglobin 11.2 g/dL (12.2-16.2); Lymphocytes # 1.1 K/mm3 (0.7-4.5); Lymphocytes % 6.8 % (10-50); Mean Corpuscular HGB Conc 32.9 g/dL (31.8-35.4); Mean Corpuscular Volume 97.5 fl (81-99); Monocytes # 0.6 K/mm3 (0.1-1.0); Monocytes % 3.6 % (1.7-9.3); Platelet Count 458 K/mm3 (142-424); Red Cell Distribution Width 18.1 % (11.5-17.5)
[2023-06-16 09:26] LABS: MANUAL DIFFERENTIAL MANUAL DIFFERENTIAL (MANUAL DIFF)
[2023-06-16 09:29] LABS: Chloride 92 mmol/L (98-107); Potassium 3.8 mmoL/L (3.5-5.1); Sodium 131 mmol/L (136-145)
[2023-06-16 09:32] LABS: Anion Gap 5.8 mEq/L (5-15); Blood Urea Nitrogen 16 mg/dl (7-17); Calcium 8.6 mg/dl (8.4-10.2); Carbon Dioxide 37 mmol/L (22.0-30.0); Creatinine Clearance Estimated 57 mL/min (50-200); Estimated Glomerular Filt Rate 82 ml/min (>60); GFR (African American) 100 ML/MIN (>60); Glucose 177 mg/dl (74-100)
[2023-06-16 09:45] LABS: Anisocytosis 1+; Lymphocytes % 14 % (10-50); Macrocytosis 1+; Monocytes % 3 % (2-9); Neutrophils % 83 % (42-76); Platelet Estimate Slight Increase; Total Cells Counted 100
--- NOTE | 2023-06-16 09:46 | P.PN_ITS ---
Subjective Subjective Date: 06/16/23 Time: 09:40 Principal diagnosis: afib rvr, pneumonia vs. lung mass Interval history: Patient complains of generalized body aches today. Blood pressure remains on the low side with systolic in the 80s. Heart rate remains A-fib RVR with heart rate less than 120. Morning labs reviewed and remained stable. Exam Data for Last 24 hours Vital signs and Labs for Last 24 Hours: Temp Pulse Resp BP Pulse Ox O2 Del Method O2 Flow Rate 97.4 F L 113 H 22 85/71 L 95 Nasal Cannula 2 06/16/23 08:00 06/16/23 08:00 06/16/23 08:00 06/16/23 08:00 06/16/23 08:00 06/16/23 08:00 06/16/23 08:00 Laboratory Results - last 24 hr 06/16/23 09:16: WBC 16.0 H, RBC 3.50 L, Hgb 11.2 L, Hct 34.1 L, MCV 97.5, MCH 32.0 H, MCHC 32.9, RDW 18.1 H, Plt Count 458 H, MPV 8.0, Neut % (Auto) 88.0 H, Lymph % (Auto) 6.8 L, [place] % (Auto) 3.6, Eos % (Auto) 1.5, Baso % (Auto) 0.1, Neut # (Auto) 14.0 H, Lymph # (Auto) 1.1, [place] # (Auto) 0.6, Eos # (Auto) 0.2, Baso # (Auto) 0.0, Total Counted 100, Neutrophils % (Manual) 83 H, Lymphocytes % (Manual) 14, Monocytes % (Manual) 3, Platelet Estimate Slight increase, Anisocytosis 1+, Macrocytosis 1+, Sodium 131 L, Potassium 3.8, Chloride 92 L, Carbon Dioxide 37 H, Anion Gap 5.8, BUN 16 D, Creatinine 0.70, Estimated Creat Clear 57, Estimated GFR 82, Est GFR ( Amer) 100, Glucose 177 H, Calcium 8.6 I & O for Last 24 hours: Intake & Output 06/13/23 06/14/23 06/15/23 06/16/23 23:59 23:59 23:59 23:59 Intake Total 3860.916 / 3860.916 950 / 1033 1596.958 / 1596.958 796.167 / 796.167 Output Total 3100 / 3100 3550 / 3550 350 / 350 Balance 3845.916 / 3845.916 -0 / -2066 -1952.042 / -1952. 446.167 / 446.167 Weight 152 lb 8.006 oz 151 lb 14.4 oz 152 lb 157 lb 7 oz Microbiology Reports for the Last 24 Hours: Microbiology 06/12/23 04:25 Sputum - Expectorated Sputum Gram Stain - Final 06/12/23 04:25 Sputum - Expectorated Sputum Sputum Culture - Final Constitutional Constitutional: no acute distress *Routine Respiratory Exam Respiratory: Present CTA bilaterally, wheezes and symmetric chest movement *Routine Cardiovascular Exam Cardiovascular: Present Normal S1, Normal S2, irregular rhythm and irregularly irregular *Routine Abdominal Exam Abdominal: Present soft and normoactive bowel sounds; Absent tenderness *Routine Extremities Exam Extremities: Present full ROM and normal capillary refill; Absent edema *Routine Skin Exam Skin: Present intact, dry and warm Detailed Neck Exam: Thyroids Thyroid: Absent bruit Progress Note: A&P Assessment and plan (1) Atrial fibrillation with RVR: Status: Acute (2) HTN (hypertension): Status: Acute (3) Pneumonia: Status: Acute (4) Back pain: Status: Acute (5) Constipation: Status: Acute (6) Lung mass: Status: Acute (7) Pericardial effusion: Status: Acute (8) Pleural effusion: Status: Acute Assessment and Plan Assessment and Plan for All Diagnoses:: Afib rvr chadsvasc score 3 Dyspnea Small right pleural effusion -Continue Xarelto 20 mg p.o. daily -Continue home dose of metoprolol 200 mg daily and oral dilt. -Resume dilt drip for rate control less than 120 as needed. 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 14 mm nodule anterior to the left shoulder consistent with neoplasm. 06/16/2023 update: Will decrease Lasix to 40 mg p.o. daily and increase diltiazem to 360 mg p.o. daily. Wean from Dilt drip. 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 14 mm nodule anterior to the left shoulder consistent with neoplasm. -Given no pulmonary or oncology coverage at this facility this week cardiology recommends transfer to a higher level of care facility for further evaluation per pulmonology and oncology. Hypertension -Currently hypotensive on Dilt drip Pneumonia -Defer to primary service CV summary 06/16/2023: Transfer to [facility] is pending. Patient doing well this morning, reports shortness of air has greatly improved. Patient remains in A- fib RVR with a heart rate less than 120 requiring diltiazem drip which is acceptable given patient's acute illness. Will decrease Lasix to 40 mg p.o. daily and increase diltiazem to 360 mg p.o. daily. Continue to wean from Dilt drip.
--- NOTE | 2023-06-16 13:22 | PC.NURSE ---
Pt was assisted to [facility] w/1 assist and had a small bm.
[2023-06-16] MEDS: RIVAROXABAN 10MG TABLET 20 MG PO (17:17)
--- NOTE | 2023-06-16 17:27 | PC.NURSE ---
updated [facility] admission [phone] that pt no longer step down and pt off diltiazem drip, informed that still no beds available at this time but pt is on list
--- NOTE | 2023-06-16 18:21 | PC.NURSE ---
report called to AMISHA De Luna at [facility], pt to be transported via EMS to 4th floor room 448, called EMS but no answer at this time
--- NOTE | 2023-06-16 18:30 | PC.NURSE ---
spoke with Dorothy in ER and was informed that one EMS truck on run to [facility] and one truck going to [facility] and Dorothy will alert EMS staff upon returning that pt needs to go to [facility]
--- NOTE | 2023-06-16 18:36 | PC.NURSE ---
notified [facility] that unable to get a hold of EMS via [phone] number, [facility] instructed this RN to call [phone] number, did so but dispatch instructed this RN to keep trying [phone] number, notified [facility] of information updated pt's that may be after shift change before can get pt up to [facility], but have called report and staff knows pt is coming to room [address]
[2023-06-16] MEDS: GABAPENTIN 300MG CAPSULE 300 MG PO (20:09)
[2023-06-16] MEDS: AZITHROMYCIN 250MG TABLET 500 MG PO (20:09)
[2023-06-16] MEDS: PANTOPRAZOLE 40MG TABLET 40 MG PO (20:09)
[2023-06-16] MEDS: dilTIAZem 30MG TABLET 30 MG PO (20:50)
--- NOTE | 2023-06-16 21:11 | PC.NURSE ---
Pt picked up by EMS to tx to [facility]. No distress noted. PRN Dilt given before transfer. called and updated.
--- NOTE | 2023-06-21 10:11 | EXP.DC.SUM ---
General Admission date:: 06/12/23 Discharge date: 06/16/23 HPI HPI HPI: Ms. Pham is a 72 year old female patient of [facility], who see Dr. Shore for her primary care. She presented to the ER last night with increasing difficulty breathing. She states she saw Dr. Shore in the office this past week and was diagnosed with bronchitis and treated with Doxycycline. She states she has been taking the medication as it was prescribed but has not gotten any better. She states she has a productive cough and shortness of breath now. Hospital Course Hospital Course Hospital Course: Patient admitted for further evaluation and management of of her pneumonia after failing outpatient treatment; plan to continue Zithromax and Rocephin Cardene drip started for her A-fib RVR; some of home meds started including Xarelto and home pain medicine. Continue with antibiotic coverage and steroids. Cardiology saw the patient with the following plan.: -Continue Xarelto 20 mg p.o. daily -Continue home dose of metoprolol 200 mg daily and diltiazem 240 daily -Resume dilt drip for rate control less than 120 -Repeat chest x-ray 06/13 shows worsening right lung base effusion -Lasix 40 mg IV x BID -Echo 06/13:Overall LV systolic function, mild RV dilation with mild reduction in RV function, mild biatrial dilation, mild AI, MR, TR and PI, RVSP is 30+ -CTA ordered to further evaluate right sided pleural effusion 06/15/2023 chest CTA showed no pulmonary embolism. right infrahilar mass obstructing bronchus intermedius consistent with neoplasm and associated metastatic adenopathy 14 mm nodule anterior to the left shoulder consistent with neoplasm. Plan was then initiated for transfer to [facility] in [place] for biopsy and further care. Symptomatically she improved and was no longer short of air at rest and no longer coughing up sputum. Her sputum culture was pending at discharge. She remained in A-fib. Patient diuresed well and respiratory status improved. Patient was transferred to [facility] by EMS in stable and satisfactory condition when bed became available on 06/16/2023, but she she remained in atrial fib with a heart rate less than 120. Exam Data for Last 24 hours Vital signs and Labs for Last 24 Hours: Temp Pulse Resp BP Pulse Ox O2 Del Method O2 Flow Rate 97.7 F 105 H 22 116/49 L 95 Nasal Cannula 2 06/16/23 20:00 06/16/23 20:00 06/16/23 20:00 06/16/23 20:00 06/16/23 20:00 06/16/23 21:00 06/16/23 21:00 Narrative: Exam Data for Last 24 hours Vital signs and Labs for Last 24 Hours: Temp Pulse Resp BP Pulse Ox O2 Del Method O2 Flow Rate 97.4 F L 113 H 22 85/71 L 95 Nasal Cannula 2 06/16/23 08:00 06/16/23 08:00 06/16/23 08:00 06/16/23 08:00 06/16/23 08:00 06/16/23 08:00 06/16/23 08:00 Laboratory Results - last 24 hr 06/16/23 09:16: WBC 16.0 H, RBC 3.50 L, Hgb 11.2 L, Hct 34.1 L, MCV 97.5, MCH 32.0 H, MCHC 32.9, RDW 18.1 H, Plt Count 458 H, MPV 8.0, Neut % (Auto) 88.0 H, Lymph % (Auto) 6.8 L, [place] % (Auto) 3.6, Eos % (Auto) 1.5, Baso % (Auto) 0.1, Neut # (Auto) 14.0 H, Lymph # (Auto) 1.1, [place] # (Auto) 0.6, Eos # (Auto) 0.2, Baso # (Auto) 0.0, Total Counted 100, Neutrophils % (Manual) 83 H, Lymphocytes % (Manual) 14, Monocytes % (Manual) 3, Platelet Estimate Slight increase, Anisocytosis 1+, Macrocytosis 1+, Sodium 131 L, Potassium 3.8, Chloride 92 L, Carbon Dioxide 37 H, Anion Gap 5.8, BUN 16 D, Creatinine 0.70, Estimated Creat Clear 57, Estimated GFR 82, Est GFR ( Amer) 100, Glucose 177 H, Calcium 8.6 I & O for Last 24 hours: Intake & Output 06/13/23 06/14/23 06/15/23 06/16/23 23:59 23:59 23:59 23:59 Intake Total 3860.916 / 3860.916 950 / 1033 1596.958 / 1596.958 796.167 / 796.167 Output Total 3100 / 3100 3550 / 3550 350 / 350 Balance 3845.916 / 3845.916 -0 / -2066 -1952.042 / -1952. 446.167 / 446.167 Weight 152 lb 8.006 oz 151 lb 14.4 oz 152 lb 157 lb 7 oz Microbiology Reports for the Last 24 Hours: Microbiology 06/12/23 04:25 Sputum - Expectorated Sputum Gram Stain - Final 06/12/23 04:25 Sputum - Expectorated Sputum Sputum Culture - Final Constitutional Constitutional: no acute distress *Routine Respiratory Exam Respiratory: Present CTA bilaterally, wheezes and symmetric chest movement *Routine Cardiovascular Exam Cardiovascular: Present Normal S1, Normal S2, irregular rhythm and irregularly irregular *Routine Abdominal Exam Abdominal: Present soft and normoactive bowel sounds; Absent tenderness *Routine Extremities Exam Extremities: Present full ROM and normal capillary refill; Absent edema *Routine Skin Exam Skin: Present intact, dry and warm Detailed Neck Exam: Thyroids Thyroid: Absent bruit Results Impressions Impressions: FINDINGS: 06/16/2023 chest CTA The heart size is normal. There is mediastinal adenopathy. A subcarinal lymph node measures 26 mm consistent with metastatic adenopathy. There are several other mildly enlarged mediastinal and hilar lymph nodes. There is no filling defect to suggest PE. There is no aortic dissection. There is a small pericardial effusion. There is a lobulated right infrahilar mass. This is difficult to measure but it measures approximately 5.8 x 4.6 cm. This mass obstructs the bronchus intermedius and has an appearance consistent with neoplasm. There are moderate right and small left pleural effusions. There is right lower lobe collapse. There is right middle lobe atelectasis. Limited images of the upper abdomen demonstrate no acute abnormality. There is a 14 mm nodule anterior to the left shoulder on image 12 consistent with neoplasm. IMPRESSION: No pulmonary embolism. 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 14 mm nodule anterior to the left shoulder consistent with neoplasm. FINDINGS: 06/13/2023 Chest x-ray A single portable view of the chest was obtained. The heart size and pulmonary vascularity are within normal limits. The mediastinum is within normal limits. There is a moderate sized right pleural effusion present, larger than noted on the prior film of June 11. A small left pleural effusion persists. There is continued persistent opacity in the right lung base, favor atelectasis. The bony thorax is intact. IMPRESSION: 06/13/2023 Echocardiogram Persistent opacity in the right lung base, favor atelectasis. Moderate size right pleural effusion, larger than seen on the prior film, with a small left pleural effusion. Conclusion Normal LV systolic function. Mild RV dilation with mild reduction in RV function. Mild biatrial dilation. Mild AI, MR, TR, and PI. RVSP is 30 mmHg plus RA pressure. DS: Diagnosis Discharge Diagnosis (1) Atrial fibrillation with RVR: Start date: 06/11/23 Status: Acute Code(s): I48.91 - Unspecified atrial fibrillation (2) HTN (hypertension): Status: Acute Code(s): I10 - Essential (primary) hypertension (3) Pneumonia: Status: Acute Code(s): J18.9 - Pneumonia, unspecified organism Qualifiers: Laterality: bilateral Pneumonia type: due to unspecified organism (4) Back pain: Status: Acute Code(s): M54.9 - Dorsalgia, unspecified (5) Constipation: Status: Acute Code(s): K59.00 - Constipation, unspecified (6) Lung mass: Status: Acute Code(s): R91.8 - Other nonspecific abnormal finding of lung field (7) Pericardial effusion: Status: Acute Code(s): I31.39 - Other pericardial effusion (noninflammatory) (8) Pleural effusion: Status: Acute Code(s): J90 - Pleural effusion, not elsewhere classified Meds Home Medications and Allergies Home Medications Medication Instructions Recorded Confirmed Type budesonide-formoterol HFA 160 2 puff inhalation BID SOB 06/12/23 06/12/23 History mcg-4.5 mcg/actuation aerosol inhaler (Symbicort) diltiazem HCl 240 mg 240 mg PO DAILY HYPERTENTION 06/12/23 06/12/23 History capsule,extended release 24 hr doxycycline hyclate 100 mg capsule 100 mg PO DAILY ANTIBIOTIC 06/12/23 06/12/23 History ezetimibe 10 mg tablet 10 mg PO DAILY LIPIDS 06/12/23 06/12/23 History fluticasone propionate 50 1 spray intranasal DAILYP PRN 06/12/23 06/12/23 History mcg/actuation nasal ALLERGIES spray,suspension folic acid 1 mg tablet 1 mg PO DAILY Supplement 06/12/23 06/12/23 History gabapentin 300 mg capsule 300 mg PO HS NEUROPATHY 06/12/23 06/12/23 History guaifenesin 600 mg tablet, 600 mg PO BID Cough 06/12/23 06/12/23 History extended release 12 hr (Mucinex) levothyroxine 50 mcg tablet 50 mcg PO DAILY THYROID 06/12/23 06/12/23 History methotrexate sodium 2.5 mg tablet 15 mg PO SA@0900 Arthritis 06/12/23 06/12/23 History metoprolol succinate 200 mg 200 mg PO DAILY Hypertension 06/12/23 06/12/23 History tablet,extended release 24 hr polyethylene glycol 3350 17 gram 17 g PO DAILY BOWELS 06/12/23 06/12/23 History oral powder packet (Miralax) prednisone 5 mg tablet 5 mg PO DAILY INFLAMMATION 06/12/23 06/12/23 History ramipril 5 mg capsule 5 mg PO DAILY Hypertension 06/12/23 06/12/23 History rivaroxaban 20 mg tablet (Xarelto) 20 mg PO QPMWITHMEAL Blood Thinner 06/12/23 06/12/23 History tramadol 37.5 mg-acetaminophen 325 37.5 tab PO TIDP PRN Pain, Moderate 06/12/23 06/12/23 History mg tablet New Prescriptions to Start Prescriptions: Allergies Allergy/AdvReac Type Severity Reaction Status Date / Time No Known Allergies Allergy Verified 06/11/23 22:28 Discharge Plan Disposition Patient Disposition: Xfer Short-Term Hosp Condition: Good Discharge Order Discharge Orders: Discharge Order (Routine); Ordered 06/16/23 Ordered By: William Rodriguez Follow up Plan Prescriptions/Medication Reconciliation: No Action doxycycline hyclate 100 mg capsule 100 mg PO DAILY Patient Comments: TAKE 1 CAPSULE BY MOUTH TWICE DAILY FOR 10 DAYS tramadol-acetaminophen 37.5-325 mg tablet 37.5 tab PO TIDP PRN (Reason: Pain, Moderate) Patient Comments: TAKE 1 TABLET BY MOUTH THREE TIMES DAILY NEEDED diltiazem HCl 240 mg capsule,extended release 24hr 240 mg PO DAILY Patient Comments: TAKE 1 CAPSULE BY MOUTH DAILY metoprolol succinate 200 mg tablet extended release 24 hr 200 mg PO DAILY prednisone 5 mg tablet 5 mg PO DAILY Patient Comments: TAKE 1 TABLET BY MOUTH ONCE DAILLY IN AM WITH FOOD methotrexate sodium 2.5 mg tablet 15 mg PO SA@0900 Patient Comments: TAKE 6 TABLETS BY MOUTH EVERY WEEK ON SAME DAY EACH WEEK levothyroxine 50 mcg tablet 50 mcg PO DAILY Patient Comments: TAKE 1 TABLET BY MOUTH EVERY DAY gabapentin 300 mg capsule 300 mg PO HS Patient Comments: TAKE 1 CAPSULE BY MOUTH EVERY NIGHT AT BEDTIME folic acid 1 mg tablet 1 mg PO DAILY Patient Comments: TAKE 1 TABLET BY MOUTH EVERY DAY ramipril 5 mg capsule 5 mg PO DAILY Patient Comments: TAKE 1 CAPSULE BY MOUTH DAILY ezetimibe 10 mg tablet 10 mg PO DAILY Patient Comments: TAKE 1 TABLET BY MOUTH EVERY DAY budesonide-formoterol [Symbicort] 160-4.5 mcg/actuation HFA aerosol inhaler 2 puff INHALATION BID Patient Comments: INHALE 2 PUFFS BY MOUTH TWICE DAILY Xarelto 20 mg tablet 20 mg PO QPMWITHMEAL Patient Comments: TAKE 1 TABLET BY MOUTH DAILY WITH DINNER fluticasone propionate 50 mcg/actuation [place],Suspension 1 spray INTRANASAL DAILYP PRN (Reason: ALLERGIES) Rx Instructions: administer into each nostril polyethylene glycol 3350 [Miralax] 17 gram Powder In Packet 17 g PO DAILY guaifenesin [Mucinex] 600 mg Tablet Extended Release 12hr 600 mg PO BID Problem Reconciliation Problems Reviewed?: Yes Patient Discharge Instructions Stand Alone Forms: Transfer Record Patient Instructions: DI for Pneumonia -- Adult, DI for Atrial Fibrillation, Catheter-Associated Urinary Tract Infection Providers Primary Care Provider: Adonis Shore Admit Provider: William Rodriguez Attending Provider: William Rodriguez
== END 2023-06-16 21:07 | disposition short-term general hospital (02) | DRG 194 ==
LOC: ER 22:16 → 2ND 06-12 04:48
PROVIDERS: Internal Medicine; Nurse Practitioner; Admitting Provider Family Medicine; Emergency Provider Emergency Medicine; PCP Family Medicine; Visit Provider Family Medicine
DX: J15.9 Unspecified bacterial pneumonia (principal); E87.1 Hypo-osmolality and hyponatremia; I42.9 Cardiomyopathy, unspecified; I48.91 Unspecified atrial fibrillation; I10 Essential (primary) hypertension; E03.9 Hypothyroidism, unspecified; M54.9 Dorsalgia, unspecified; Z86.73 Personal history of transient ischemic attack (TIA), and cerebral infarction without residual deficits; I48.0 Paroxysmal atrial fibrillation; K59.00 Constipation, unspecified; R91.8 Other nonspecific abnormal finding of lung field
CPT/HCPCS: 36415; 71045; 71275; 80048; 80053; 81001; 83605; 83880; 84484; 85007; 85025; 87070; 87205; 87636; 93005; 93306; 94640; 99285; J0456; J0696; Q9967